=== PATIENT | female | born 1985 | race Caucasian/White ===

== ENCOUNTER 2019-04-11 12:05 | Observation (INO) | payer BC, OTHER ==
[~2019-04-11] VITALS: Ht 170 cm; Wt 84.4 kg
--- NOTE | 2019-04-11 12:00 | NUR ---
ARLEN BASHIR presented to unit via ambulation, accompanied by s/o, with c/o cramping since this a.m. Pt. weighed, gowned, voided, and to bed. EFHM and TOCO applied, VS taken. Pt. oriented to bed controls, call light, TV, heat, and A/C controls.
[~2019-04-11 12:05] MED LIST: ASP325T; BACL10TA PO; CEFU250T PO; CEPH-506 PO; KETO-22 PO; MULT1TAB12 PO; NF-ESOM40C PO; ONDAN4ODT PO
[2019-04-11 12:15] VITALS: BP 124/74
[2019-04-11] MEDS ORDERED: PREN-48 PO (12:29)
[2019-04-11 12:30] VITALS: BP 124/74
[2019-04-11 12:32] LABS: BILIRUBIN,URINE NEGATIVE (NEGATIVE); CLARITY,URINE CLEAR; COLOR,URINE YELLOW; GLUCOSE, URINE (UA) NEGATIVE (NEGATIVE); KETONES,URINE NEGATIVE (NEGATIVE); LEUKOCYTE ESTERASE ,URINE NEGATIVE (NEGATIVE); NITRITE,URINE NEGATIVE (NEGATIVE); PH,URINE 5.5 (5-9); PROTEIN,URINE NEGATIVE (NEGATIVE)
[2019-04-11 12:41] LABS: BACTERIA,URINE TRACE /HPF; WBC,URINE RARE /HPF
--- NOTE | 2019-04-11 13:05 | NUR ---
Dr Perkins called and notified of pt arrival - pt had called clinic so aware of pt complaints and history. updated on SVE, ctx pattern, pt c/o cramping, hx of nausea this am, FHR pattern, VS, UA. Orders rec'd for IV fluid, vistaril, betamethasone. Order also rec'd for terbutaline if needed one hour after vistaril.
[2019-04-11] MEDS ORDERED: LACTATED RINGERS 1,000 ML IV ONE (13:07)
[2019-04-11] MEDS ORDERED: TERBUTALINE INJ 1 MG/ML (BRETHINE) AMP SC NR ×2 (13:15→15:30)
[2019-04-11] MEDS ORDERED: hydrOXYzine (VISTARIL/ATARAX) 25 MG capsule/tablet PO NR (13:15)
[2019-04-11] MEDS ORDERED: BETAMETHASONE ACE/NA PHOS 6 MG/ML (CELESTONE SOLUSPAN) IM SCH (13:30)
--- NOTE | 2019-04-11 15:07 | NUR ---
Dr Perkins called for update. Update given. Orders rec'd for US for cervical length and CHARLENE, maintenance fluids at 125ml/hr.
[2019-04-11] MEDS ORDERED: D5 LR IV SOLUTION 1,000 ML IV SCH ×2 (15:15→18:04)
--- NOTE | 2019-04-11 15:23 | NUR ---
Dr. Perkins notified of repeat SVE. Order for admit to obs and another dose of terbutaline.
[2019-04-11 15:30] VITALS: BP 118/57
--- NOTE | 2019-04-11 16:11 | History & Physical-OB ---
OB - Chief Complaint & HPI Date/Time Date of Admission: Date of Admission: 04/11/2019 Date seen by a Provider: Apr 11, 2019 Time Seen by a Provider: 16:04 Chief Complaint/History OB-Reason for Admission/Chief: Labor Hx : 5 Hx Para: 2 Expected Date of Delivery: Jun 12, 2019 Gestational Age in Weeks: 31 Gestational Age in Days: 1 Other reason for admission: Patient started having cramping this AM around 9 AM. Denies any LOF or bleeding. Pain started getting stronger and more uncomfortable. Denies any coughing, no fevers or chills. History of Labs A neg, Ab neg Rub Imm Normal Pap GC/Chyl neg HepB/RPR/HIV NR Normal 1 hr GTT Allergies and Home Medications Allergies Coded Allergies: No Known Drug Allergies (Verified , 08/20/08) Home Medications Vit No.78/Iron/FA 1 Each Tablet, 1 EACH PO DAILY, (Reported) Patient Home Medication List Home Medication List Reviewed: Yes OB - History Hx of Present Care: Yes Ultrasounds: Normal mid trimester US Obstetrical Complications: None Medical Complications: None Obstetrical History Hx : 5 Hx Para: 2 Number of Living Children: 2 Hx Termination: No Hx Multiple Gestation: No Hx Stillbirth: No Hx Complication: No Hx Induced Hypertens: No Hx Maternal Gestational Diabet: No Delivery History Hx Dystocia: No Hx Large For Gestational Age I: No Hx Small for Gestational Age I: No Hx Section: No Hx Vaginal Delivery Post C-Sec: No Hx Blood Disorders: No Adverse Rxn to Tranfusion: No Patient Past Medical History NA Social History/Family History HIV/AIDS: No Recent Infectious Disease Expo: No Sexually Transmitted Disease: No Alcohol Use: Denies Use Recreational Drug Use: No Smoking Cessation: Former smoker 2nd Hand Smoke Exposure: Yes Immunizations Tetanus Booster (TDap): Less than 5yrs (04/02/19) Date of Influenza Vaccine: Jan 16, 2019 Rubella: immune RPR/VDRL: Negative GBS Status: Unknown HBsAG: Negative OB - Admission Exam Physical Exam Vitals: Vital Signs 04/11/19 12:30 Temp 36.4 Pulse 86 Resp 18 Pulse Ox 99 O2 Delivery Room Air HEENT: NCAT Heart: Rhythm Normal Lungs: Clear Abdomen: Gravid Extremities: Normal Reflexes: Normal Cervical Dilatation: 2cm Effacement: 75% Membranes: Intact Decelerations: Variable Decelerations Contractions on Admission: < 5 Minutes Apart Labs Laboratory Tests Test 04/11/19 12:05 Range/Units Urine Color YELLOW Urine Clarity CLEAR Urine pH 5.5 5-9 Urine Specific [place] <=1.005 1.016-1.022 Urine Protein NEGATIVE NEGATIVE Urine Glucose (UA) NEGATIVE NEGATIVE Urine Ketones NEGATIVE NEGATIVE Urine Nitrite NEGATIVE NEGATIVE Urine Bilirubin NEGATIVE NEGATIVE Urine Urobilinogen 0.2 < = 1.0 MG/DL Urine Leukocyte Esterase NEGATIVE NEGATIVE Urine RBC (Auto) NEGATIVE NEGATIVE Urine RBC NONE /HPF Urine WBC RARE /HPF Urine Squamous Epithelial Cells 2-5 /HPF Urine Crystals NONE /LPF Urine Bacteria TRACE /HPF Urine Casts NONE /LPF Urine Mucus NEGATIVE /LPF Urine Culture Indicated NO OB - Assessment/Plan/Diagnosis Assessment Assessment: labor Admission Dx Pre term Labor 31 week gestation Admission Status: Observation Reason for Inpatient Admission: Labor Plan Other Plan 33 yo @ 31.1 wga here for labor Plan - Terb x 2 given, will continue to monitor after 2nd dose of terb if she continues to have cervical change then will transfer to [facility] Dr Spangler who I have already discussed patient with. - Beta x1, will need second dose tomorrow - If she continues to change will start Magnesium - US ordered - GBS culture done Copy Copies To 1: JELANI YANES MD, HOLLY R MD Apr 11, 2019 16:11
--- NOTE | 2019-04-11 16:30 | NUR ---
Dr Perkins here, discussing plan of care with pt.
--- NOTE | 2019-04-11 16:46 | Diagnostic Imaging Report ---
EXAMINATION: Limited ultrasound. INDICATION: Check cervix and amniotic fluid index. COMPARISON: There are no prior studies available for comparison. FINDINGS: There is a single live fetus in cephalic presentation. heart motion was noted and a rate of 169 BPM was recorded. There are no obvious abnormalities identified although a complete survey was not performed. growth parameters were not obtained either. The placenta is anterior and there is no previa. The amniotic fluid index is 10.55 (normal 8 to 22 cm). The cervix was visualized and measures 5.1 cm in length (normal 3 cm or greater). IMPRESSION: 1. There is a single live fetus in cephalic presentation. 2. There are no obvious abnormalities identified. 3. The amniotic fluid index and the length of the cervix are within normal limits. Dictated by: Dictated on workstation # [id number]
--- NOTE | 2019-04-11 17:19 | NUR ---
Dr. Perkins here, making arrangements for transfer of care to [facility]
[2019-04-11] MEDS ORDERED: ceFAZolin 2 GM/50 ML NS 50 ML ONE (18:05)
[2019-04-11] MEDS ORDERED: ceFAZolin INJECTION 1,000 MG ONE (18:08)
[2019-04-11] MEDS ORDERED: WATER (STERILE) FOR INJECTION 10 ML ONE (18:10)
[2019-04-11] MEDS ORDERED: CALCIUM GLUC. 10% 4.65 MEQ/10 ML VIAL IV PRN (18:15)
[2019-04-11] MEDS ORDERED: ceFAZolin INJECTION 1,000 MG in WATER (STERILE) FOR INJECTION 10 ML IV NR (18:15)
[2019-04-11] MEDS ORDERED: MAGNESIUM 4 GM/100 ML IVPB 100 ML IV SCH (18:15)
[2019-04-11 18:20] VITALS: BP 111/60
[2019-04-11] MEDS ORDERED: MAGNESIUM SULFATE DRIP 500 ML IV SCH (18:34)
[2019-04-11 18:45] VITALS: BP 114/59
--- NOTE | 2019-04-11 18:55 | NUR ---
Report to EMS staff. Pt transferred to [facility], assisted by EMS. No s/s of distress noted. Pt taken off unit to ambulance accompanied by EMS.
--- NOTE | 2019-04-11 19:03 | NUR ---
[facility] [place]
== END 2019-04-11 19:00 | disposition designated cancer center or children's hospital (05) ==
LOC: WSo 12:05 → LDRP 12:07 → WS 12:34 → LDRP 12:34 → WSo 15:26
PROVIDERS: ADMIT Family Medicine; ATTEND Family Medicine
DX: O60.00 Preterm labor without delivery, unspecified trimester (principal); Z3A.31 31 weeks gestation of pregnancy; Z87.891 Personal history of nicotine dependence
CPT/HCPCS: 76815; 81000; 87077; 87081; 87088; 96361; 96372; 96374; 96375; 96376; 99211; G0378

== ENCOUNTER 2019-04-29 17:35 | Outpatient (CLI) | payer BC ==
[~2019-04-29] VITALS: Ht 170.2 cm; Wt 84.4 kg
--- NOTE | 2019-04-29 17:26 | NUR ---
ARLEN BASHIR presented to unit via ambulation from dr office, accompanied by self, with c/o CONTRACTIONS. ARLEN BASHIR weighed, gowned, voided, and to bed. EFHM and TOCO applied, VS taken. ARLEN BASHIR oriented to bed controls, call light, TV, heat, and A/C controls.
[~2019-04-29 17:35] MED LIST changes: +PREN-48 PO
[2019-04-29 18:21] VITALS: BP 124/69
--- NOTE | 2019-04-29 18:25 | NUR ---
mug of ice water given. reviewed need to drink over next 30-1 hr. verbalized understanding.
--- NOTE | 2019-04-29 19:00 | NUR ---
3 contractions noted. no contractions last 20 min. 400cc of water drank over last 30 min. encouraged patient to continue hydrating. s/o at bedside.
--- NOTE | 2019-04-29 19:32 | NUR ---
dr adams called with patient c/o contraction/fhr pattern. new orders received. report to food preparation worker RN.
[2019-04-29] MEDS ORDERED: NS IV 1000 ML 1,000 ML ONE (19:34)
[2019-04-29] MEDS ORDERED: TERBUTALINE INJ 1 MG/ML (BRETHINE) AMP ONE (19:51)
[2019-04-29] MEDS ORDERED: TERBUTALINE INJ 1 MG/ML (BRETHINE) AMP SC ONE (20:00)
[2019-04-29] MEDS ORDERED: NS IV 1000 ML 1,000 ML IV SCH (20:00)
[2019-04-29 21:06] VITALS: BP 100/55
--- NOTE | 2019-04-29 21:43 | NUR ---
Discharge instructions discussed with patient. No questions or concerns voiced. Signature sheet signed, placed on chart. Pt ambulating off unit to private vehicle at time. No distress noted.
--- NOTE | 2019-04-30 09:29 | Physician Query-Final Dx ---
Clinic Account Progress/Dx Physician Query: Please give diagnosis Please include # weeks gestation Date of Service Apr 29, 2019 at 17:35 FANY VILLEGAS Apr 30, 2019 09:28
[2019-04-30 17:12] LABS: BILIRUBIN,URINE NEGATIVE (NEGATIVE); CLARITY,URINE CLEAR; COLOR,URINE YELLOW; GLUCOSE, URINE (UA) NEGATIVE (NEGATIVE); KETONES,URINE NEGATIVE (NEGATIVE); LEUKOCYTE ESTERASE ,URINE NEGATIVE (NEGATIVE); NITRITE,URINE NEGATIVE (NEGATIVE); PH,URINE 6.5 (5-9); PROTEIN,URINE NEGATIVE (NEGATIVE)
[2019-04-30 17:21] LABS: BACTERIA,URINE MODERATE /HPF
== END 2019-04-29 21:43 | disposition home or self-care (01) ==
LOC: WSo 17:35 → LDRP 17:35 → WSo 21:43
PROVIDERS: ATTEND Family Medicine
DX: O26.899 Other specified pregnancy related conditions, unspecified trimester (principal); Z3A.00 Weeks of gestation of pregnancy not specified
CPT/HCPCS: 81000; 87088; 96360; 96372; 99213

== ENCOUNTER 2019-05-28 09:53 | Inpatient (IN) | payer BC ==
[2019-05-28] VITALS (41 sets, daily range): BP systolic 60–122; BP diastolic 44–73
[~2019-05-28] VITALS: Ht 170.2 cm; Wt 78.5 kg
--- NOTE | 2019-05-28 09:40 | NUR ---
ARLEN BASHIR presented to unit via ambulatory from office, accompanied by SO, for INDUCTION. ARLEN BASHIR weighed, gowned, voided, and to bed. EFHM and TOCO applied, VS taken. ARLEN BASHIR oriented to bed controls, call light, TV, heat, and A/C controls.
[~2019-05-28 09:53] MED LIST changes: +NFD60TCR PO
[2019-05-28] MEDS ORDERED: OXYTOCIN PRE-MIX DRIP 500 ML IV SCH ×2 (10:11→20:46)
[2019-05-28] MEDS ORDERED: MINERAL OIL CONCENTRATE 99.9% 15 ML UDC TOP PRN (10:15)
[2019-05-28 10:22] LABS: BASOPHILS % (AUTO) 0 % (0-10); EOSINOPHILS # (AUTO) 0.3 10^3/uL (0.0-0.3); EOSINOPHILS % (AUTO) 2 % (0-10); HEMATOCRIT 35 % (35-52); HEMOGLOBIN 11.9 G/DL (11.5-16.0); LYMPHOCYTES # (AUTO) 1.7 X 10^3 (1.0-4.0); LYMPHOCYTES % (AUTO) 12 % (12-44); MEAN CORPUSCULAR HEMOGLOBIN 31 PG (25-34); MEAN CORPUSCULAR HGB CONC 34 G/DL (32-36); MEAN CORPUSCULAR VOLUME 91 FL (80-99); MEAN PLATELET VOLUME 11.5 FL (7.4-10.4); MONOCYTES # (AUTO) 1.1 X 10^3 (0.0-1.0); MONOCYTES % (AUTO) 8 % (0-12); NEUTROPHILS # (AUTO) 11.2 X 10^3 (1.8-7.8); NEUTROPHILS % (AUTO) 78 % (42-75); PLATELET COUNT 203 10^3/uL (130-400); WHITE BLOOD COUNT 14.3 10^3/uL (4.3-11.0)
[2019-05-28] MEDS ORDERED: LACTATED RINGERS 1,000 ML IV ONE ×2 (10:22→12:10)
[2019-05-28] MEDS ORDERED: SUFENTA 0.6MCG/ML BUPIVA 0.125 100 ML ONE (10:22)
[2019-05-28] MEDS: D5 LR IV SOLUTION 1,000 ML IV SCH ×2 (10:22→18:02)
[2019-05-28] MEDS ORDERED: fentaNYL INJECTION 100 MCG/2 ML AMP ONE (11:39)
[2019-05-28 12:01] LABS: BAND NEUTROPHILS 7 %; BASOPHILS % (MANUAL) 0 %; EOSINOPHILS % (MANUAL) 5 %; LYMPHOCYTES % (MANUAL) 11 %; MONOCYTES % (MANUAL) 3 %; NEUTROPHILS % (MANUAL) 74 %; RBC MORPH NORMAL
[2019-05-28] MEDS ORDERED: ONDANSETRON 4 MG/2 ML (SDV) Z0FRAN IV PRN (12:15)
[2019-05-28] MEDS ORDERED: EPIDURAL (SUFENTA 0.6MCG/ML BUPIVA 0.125%) 100 ML BAG EPI PRN (12:15)
[2019-05-28] MEDS ORDERED: NALOXONE 0.4 MG/ML 1 ML (NARCAN) VIAL IV PRN ×2 (12:15)
[2019-05-28] MEDS ORDERED: METOCLOPRAMIDE INJ 10 MG/2 ML (REGLAN) IV PRN (12:15)
[2019-05-28] MEDS ORDERED: diphenhydrAMINE 50 MG/ML INJ (BENADRYL) IV PRN (12:15)
--- NOTE | 2019-05-28 12:30 | NUR ---
report given to Linda GALLO
--- NOTE | 2019-05-28 18:03 | History & Physical-OB ---
OB - Chief Complaint & HPI Date/Time Date of Admission: Date of Admission: May 28, 2019 at 09:53 Date seen by a Provider: May 28, 2019 Time Seen by a Provider: 17:59 Chief Complaint/History OB-Reason for Admission/Chief: Induction of Labor (Oligo) Hx : 1 Expected Date of Delivery: Jun 12, 2019 Gestational Age in Weeks: 37 Gestational Age in Days: 6 Indication for induction: other (Oligohydramnios) History of Labs A neg, Ab neg Rub Imm HIV/RPR/HepB NR Normal 1 hr GTT GBS neg Allergies and Home Medications Allergies Coded Allergies: No Known Drug Allergies (Verified , 08/20/08) Home Medications Nifedipine 60 Mg Tablet.er, 60 MG PO DAILY Prescribed by: JELANI YANES on 05/07/19 1027 Vit No.78/Iron/FA 1 Each Tablet, 1 EACH PO DAILY, (Reported) Patient Home Medication List Home Medication List Reviewed: Yes OB - History Hx of Present Care: Yes Ultrasounds: Normal mid trimester US, Other (Oligohydramnios today BPP) Obstetrical Complications: Other ( labor, Beta x 2 doses) Medical Complications: None Obstetrical History Hx : 5 Hx Para: 2 Hx # Term Pregnancies: 2 Number of Living Children: 2 Hx Termination: No Hx Total # of Abortions (Spona: 2 Hx Multiple Gestation: No Hx Stillbirth: No Hx Complication: No Hx Induced Hypertens: No Hx Maternal Gestational Diabet: No Delivery History Hx Dystocia: No Hx Large For Gestational Age I: No Hx Small for Gestational Age I: No Hx Section: No Hx Vaginal Delivery Post C-Sec: No Hx Blood Disorders: No Adverse Rxn to Tranfusion: No Patient Past Medical History Repaired clef palate Social History/Family History HIV/AIDS: No Recent Infectious Disease Expo: No Sexually Transmitted Disease: No Alcohol Use: Denies Use Recreational Drug Use: No 2nd Hand Smoke Exposure: No Immunizations Hepatitis A: No Hepatitis B: No Tetanus Booster (TDap): Less than 5yrs (04/02/19) Date of Influenza Vaccine: Dec 27, 2018 Rubella: immune RPR/VDRL: Negative GBS Status: Negative HBsAG: Negative OB - Admission Exam Physical Exam Vitals: Vital Signs 05/28/19 05/28/19 05/28/19 13:00 15:45 16:45 Temp 36.8 Pulse 78 Resp 16 B/P (MAP) 110/72 (85) Pulse Ox 96 O2 Delivery Room Air HEENT: NCAT Heart: Rhythm Normal Lungs: Clear Abdomen: Gravid Cervical Dilatation: 5cm Effacement: 75% Station: 0 Membranes: Ruptured Amniotic Fluid: Clear Heart Rate: 140's Accelerations: Accelerations Present Decelerations: No Decelerations Contractions on Admission: < 5 Minutes Apart Intensity: Moderate Quinteros Scoring Tool (Modified) Dilation (cm): 3-4cm (2) Effacement (%): 31-51% (1) Descent/Station: -1,0 (2) Cervix Consistency: Medium(1) Cervix Position: Middle/Mid-Position (1) Add 1 point for: Each previous vaginal delivery (1) Quinteros Score: 8 Labs Laboratory Tests Test 05/28/19 10:05 Range/Units White Blood Count 14.3 H 4.3-11.0 10^3/uL Red Blood Count 3.87 L 4.35-5.85 10^6/uL Hemoglobin 11.9 11.5-16.0 G/DL Hematocrit 35 35-52 % Mean Corpuscular Volume 91 80-99 FL Mean Corpuscular Hemoglobin 31 25-34 PG Mean Corpuscular Hemoglobin Concent 34 32-36 G/DL Red Cell Distribution Width 14.0 10.0-14.5 % Platelet Count 203 130-400 10^3/uL Mean Platelet Volume 11.5 H 7.4-10.4 FL Neutrophils (%) (Auto) 78 H 42-75 % Lymphocytes (%) (Auto) 12 12-44 % Monocytes (%) (Auto) 8 0-12 % Eosinophils (%) (Auto) 2 0-10 % Basophils (%) (Auto) 0 0-10 % Neutrophils # (Auto) 11.2 H 1.8-7.8 X 10^3 Lymphocytes # (Auto) 1.7 1.0-4.0 X 10^3 Monocytes # (Auto) 1.1 H 0.0-1.0 X 10^3 Eosinophils # (Auto) 0.3 0.0-0.3 10^3/uL Basophils # (Auto) 0.0 0.0-0.1 10^3/uL Neutrophils % (Manual) 74 % Lymphocytes % (Manual) 11 % Monocytes % (Manual) 3 % Eosinophils % (Manual) 5 % Basophils % (Manual) 0 % Band Neutrophils 7 % Blood Morphology Comment NORMAL OB - Assessment/Plan/Diagnosis Assessment Assessment: induction of labor Admission Dx Oligohydramnios 37 week gestation Third trimester Admission Status: Inpatient Order (span 2 midnights) Reason for Inpatient Admission: Labor Plan Plan: Induction Other Plan 33 yo @ 37.6 wga here for IOL for Oligohydramnios Plan Pitocin Protocol GBS neg AROM 1750 Clear JELANI YANES MD May 28, 2019 18:03
[2019-05-28] MEDS: CATHETER FLUSH 10 ML SYR IV SCH ×2 (19:03→22:15)
--- NOTE | 2019-05-28 19:20 | NUR ---
Report given to Margarita Limon RN.
--- NOTE | 2019-05-28 20:44 | OB Labor & Delivery Record ---
Vag Delivery Note Vag Delivery Note Date of Delivery: 05/28/19 Preoperative Diagnosis: Almita Burdick is a (33 /Para 5 / 2, Gestational Age (wks)37.6 wga here for IOL for Oligohydramnios Postoperative Diagnosis: Same Surgeon: JELANI YANES Manager Of Data: Joanna Urbina MS3 Anesthesia: Epidural Delivery Type: @ 2014 Findings: Viable Female infant, apgars 8/9, weight 6#3, 2820 grams Lacerations: none Intact placenta with 3 vessel cord. No nuchal cord, body cord or shoulder dystocia Estimated Blood Loss: 100 ml Complications: None Condition: Stable Description of Procedure: The patient is a 33 year old female who presented for IOL. She was admitted and informed consent was obtained. Her labor course was unremarkable. She progressed to complete dilatation and began to push. She was then set up for delivery. The infant's head was delivered atraumatically in the LAUREN position. The shoulders and remainder of the infant's body were then delivered without difficulty. Upon delivery, the head was held below the level of the perineum and the mouth and nares were bulb suctioned. The cord was doubly clamped after 2 min delay and cut by FOB and the was placed on maternal abdomen. An intact placenta with 3-vessel cord delivered via Evan and there was found to be minimal bleeding.~ Vigorous fundal massage was performed and the fundus was found to be firm. IV oxytocin was given. Examination of the vagina and perineum revealed no lacerations that require repair. Following the repair, sponge, instrument and needle counts were correct. Mom and baby were both in stable condition in the labor suite. Vitals - Labs Vital Signs - I&O Vital Signs Date Time Temp Pulse Resp B/P (MAP) Pulse Ox O2 Delivery O2 Flow Rate FiO2 05/28/19 19:00 72 16 103/67 (79) Room Air 05/28/19 18:45 70 16 103/69 (80) Room Air 05/28/19 18:30 75 16 101/68 (79) 99 Room Air 05/28/19 18:15 65 16 103/65 (78) 99 Room Air 05/28/19 18:00 71 16 103/65 (78) 99 Room Air 05/28/19 17:45 36.8 71 16 102/62 (75) Room Air 05/28/19 17:30 71 16 105/66 (79) Room Air 05/28/19 17:15 65 16 106/62 (77) Room Air 05/28/19 17:00 65 16 102/66 (78) Room Air 05/28/19 16:45 78 16 110/72 (85) Room Air 05/28/19 16:30 63 16 106/65 (79) Room Air 05/28/19 16:15 66 16 104/67 (79) Room Air 05/28/19 16:00 64 16 102/62 (75) Room Air 05/28/19 15:45 65 16 104/59 (74) 96 Room Air 05/28/19 15:30 60 16 104/61 (75) Room Air 05/28/19 15:15 72 16 108/64 (79) Room Air 05/28/19 15:00 66 16 108/53 (71) Room Air 05/28/19 14:45 67 16 103/60 (74) 97 Room Air 05/28/19 14:30 68 16 104/59 (74) 97 Room Air 05/28/19 14:15 69 16 104/64 (77) 98 Room Air 05/28/19 14:00 77 16 101/64 (76) 98 Room Air 05/28/19 13:45 71 16 98/63 (75) 97 Room Air 05/28/19 13:30 73 16 107/72 (84) 97 Room Air 05/28/19 13:15 96 16 105/72 (83) 98 Room Air 05/28/19 13:00 36.8 80 16 102/68 (79) 98 Room Air 05/28/19 12:45 88 16 107/68 (81) 98 Room Air 05/28/19 12:00 36.3 75 16 109/67 (81) 98 Room Air 05/28/19 09:50 93 16 114/73 (87) 97 Room Air 05/28/19 09:40 37.7 93 16 97 Room Air Labs Laboratory Tests 05/28/19 10:05: White Blood Count 14.3H, Red Blood Count 3.87L, Hemoglobin 11.9, Hematocrit 35, Mean Corpuscular Volume 91, Mean Corpuscular Hemoglobin 31, Mean Corpuscular Hemoglobin Concent 34, Red Cell Distribution Width 14.0, Platelet Count 203, Mean Platelet Volume 11.5H, Neutrophils (%) (Auto) 78H, Lymphocytes (%) (Auto) 1 2, Monocytes (%) (Auto) 8, Eosinophils (%) (Auto) 2, Basophils (%) (Auto) 0, Neutrophils # (Auto) 11.2H, Lymphocytes # (Auto) 1.7, Monocytes # (Auto) 1.1H, Eosinophils # (Auto) 0.3, Basophils # (Auto) 0.0, Neutrophils % (Manual) 74, Lymphocytes % (Manual) 11, Monocytes % (Manual) 3, Eosinophils % (Manual) 5, Basophils % (Manual) 0, Band Neutrophils 7, Blood Morphology Comment NORMAL JELANI YANES MD May 28, 2019 20:44
[2019-05-28] MEDS ORDERED: BENZOCAINE/MENTHOL (DERMOPLAST) 60 ML CAN TP PRN (21:00)
[2019-05-28] MEDS ORDERED: WITCH HAZEL(TUCKS) 40 EA JAR TOP PRN (21:00)
[2019-05-28] MEDS ORDERED: CATHETER FLUSH 10 ML SYR IV SCH (22:00)
--- NOTE | 2019-05-28 23:30 | NUR ---
PT AND BABY TRANSFERRED TO PP ROOM. PT REQUESTS SHOWER AT THIS TIME. NO S/S OF DISTRESS NOTED.
--- NOTE | 2019-05-28 23:45 | NUR ---
PT UP TO SHOWER AT THIS TIME- INDEPENDENTLY. TOLERATED WELL.
[2019-05-28] MEDS: DOCUSATE SODIUM 100 MG (COLACE) CAP PO SCH (23:52)
[2019-05-29 00:02] VITALS: BP 117/67
[2019-05-29] MEDS: IBUPROFEN 600 MG (MOTRIN) TAB PO SCH ×5 (00:02→21:58)
[2019-05-29] MEDS: ACETAMINOPHEN 500 MG TAB (TYLENOL) PO SCH ×5 (00:02→21:58)
--- NOTE | 2019-05-29 00:06 | NUR ---
PT SITTING UP IN BED BONDING WITH INFANT. NO S/S OF DISTRESS NOTED. NO C/O DISCOMFORT AT THIS TIME. PT STATES SHE FEELS MUCH BETTER AFTER HER SHOWER. THIS RN EXPLAINS MEDICATIONS AND ADMIN TIMES. PT STATES THAT SHE DOESN'T WANT TO TAKE THE MOTRIN OR TYLENOL SCHEDULED. PT STATES SHE WILL LET NURSING STAFF KNOW IF SHE NEEDS PAIN MEDICATIONS.
[2019-05-29 04:22] VITALS: BP 99/60
[2019-05-29 07:09] LABS: BASOPHILS % (AUTO) 0 % (0-10); EOSINOPHILS # (AUTO) 0.3 10^3/uL (0.0-0.3); EOSINOPHILS % (AUTO) 2 % (0-10); HEMATOCRIT 34 % (35-52); HEMOGLOBIN 11.1 G/DL (11.5-16.0); LYMPHOCYTES # (AUTO) 1.8 X 10^3 (1.0-4.0); LYMPHOCYTES % (AUTO) 12 % (12-44); MEAN CORPUSCULAR HEMOGLOBIN 31 PG (25-34); MEAN CORPUSCULAR HGB CONC 33 G/DL (32-36); MEAN CORPUSCULAR VOLUME 92 FL (80-99); MEAN PLATELET VOLUME 11.7 FL (7.4-10.4); MONOCYTES # (AUTO) 1.6 X 10^3 (0.0-1.0); MONOCYTES % (AUTO) 11 % (0-12); NEUTROPHILS % (AUTO) 75 % (42-75); PLATELET COUNT 168 10^3/uL (130-400); RED CELL DISTRIBUTION WIDTH 13.7 % (10.0-14.5); WHITE BLOOD COUNT 14.6 10^3/uL (4.3-11.0)
--- NOTE | 2019-05-29 07:58 | Anesthesia-Regional Post-Op ---
Regional Patient Condition Mental Status: Alert, Oriented x3 Circulation: Same as Pre-Op Headache: Absent Sensation: Full Recovery Motor Block: Absent Post Op Complications Complications None Follow Up Care/Instructions Patient Instructions None needed. Anesthesia/Patient Condition Patient is doing well, no complaints, stable vital signs, no apparent adverse anesthesia problems. No complications reported per nursing. MASON DUDLEY CRNA May 29, 2019 07:58
[2019-05-29 08:30] VITALS: BP 115/56
--- NOTE | 2019-05-29 08:30 | NUR ---
A.M. ASSESSMENT COMPLETED. VSS. CARING FOR IN ROOM.
--- NOTE | 2019-05-29 08:45 | NUR ---
MENU GIVEN WITH INSTRUCTIONS ON CALLING DIETARY.
[2019-05-29] MEDS: DOCUSATE SODIUM 100 MG (COLACE) CAP PO SCH ×2 (08:48→21:58)
--- NOTE | 2019-05-29 09:08 | Progress Note ---
Subjective Subjective/Events-last exam Doing well. Pain and lochia as expected. Bottle feeding. Objective Exam Last Set of Vital Signs Vital Signs Date Time Temp Pulse Resp B/P (MAP) Pulse Ox O2 Delivery O2 Flow Rate FiO2 05/29/19 04:22 36.2 64 16 99/60 (73) 98 Room Air Capillary Refill : Less Than 3 Seconds I&O Intake and Output 05/29/19 00:00 Intake Total 3377 ml Balance 3377 ml IV Total 3377 ml Daily Weight Change No General: Alert, Oriented X3, Cooperative Psych/Mental Status: Mood NL Results/Procedures Lab Laboratory Tests 05/28/19 10:05: White Blood Count 14.3H, Red Blood Count 3.87L, Hemoglobin 11.9, Hematocrit 35, Mean Corpuscular Volume 91, Mean Corpuscular Hemoglobin 31, Mean Corpuscular Hemoglobin Concent 34, Red Cell Distribution Width 14.0, Platelet Count 203, Mean Platelet Volume 11.5H, Neutrophils (%) (Auto) 78H, Lymphocytes (%) (Auto) 12, Monocytes (%) (Auto) 8, Eosinophils (%) (Auto) 2, Basophils (%) (Auto) 0, Neutrophils # (Auto) 11.2H, Lymphocytes # (Auto) 1.7, Monocytes # (Auto) 1.1H, Eosinophils # (Auto) 0.3, Basophils # (Auto) 0.0, Neutrophils % (Manual) 74, Lymphocytes % (Manual) 11, Monocytes % (Manual) 3, Eosinophils % (Manual) 5, Basophils % (Manual) 0, Band Neutrophils 7, Blood Morphology Comment NORMAL 05/29/19 06:40: White Blood Count 14.6H, Red Blood Count 3.64L, Hemoglobin 11.1L, Hematocrit 34L , Mean Corpuscular Volume 92, Mean Corpuscular Hemoglobin 31, Mean Corpuscular Hemoglobin Concent 33, Red Cell Distribution Width 13.7, Platelet Count 168, Mean Platelet Volume 11.7H, Neutrophils (%) (Auto) 75, Lymphocytes (%) (Auto) 12, Monocytes (%) (Auto) 11, Eosinophils (%) (Auto) 2, Basophils (%) (Auto) 0, Neutrophils # (Auto) 11.0H, Lymphocytes # (Auto) 1.8, Monocytes # (Auto) 1.6H, Eosinophils # (Auto) 0.3, Basophils # (Auto) 0.0 Assessment/Plan Assessment/Plan (1) Spontaneous vaginal delivery Assessment & Plan: IOL at 37w6 for oligohydramnios PPD #1 - routine pp care plan DC home tomorrow Clinical Quality Measures DVT/VTE Risk/Contraindication: Risk Factor Score Per Nursin RFS Level Per Nursing on Admit: 1=Low/No VTE PPX ESTHER JOSEPH DO May 29, 2019 09:08
--- NOTE | 2019-05-29 11:00 | NUR ---
CONTINUES TO CARE FOR IN ROOM. BOTTLE FEEDING . GOOD INTERACTION NOTED.
[2019-05-29 12:30] VITALS: BP 115/63
--- NOTE | 2019-05-29 14:30 | NUR ---
OFFERS NO COMPLAINTS AT THIS TIME. CONTINUES TO CARE FOR INFANT IN ROOM.
[2019-05-29 16:00] VITALS: BP 109/57
--- NOTE | 2019-05-29 17:15 | NUR ---
RHOGAM 1 VIAL IM IN LEFT VG SITE. SITE CLEAR. VISITORS AT BEDSIDE.
[2019-05-29 21:58] VITALS: BP 114/54
--- NOTE | 2019-05-30 00:45 | NUR ---
Pt. resting in bed with infant at bedside in crib. No questions or concerns voiced at this time.
[2019-05-30 04:05] VITALS: BP 118/79
[2019-05-30] MEDS: IBUPROFEN 600 MG (MOTRIN) TAB PO SCH ×2 (04:05→11:40)
[2019-05-30] MEDS: ACETAMINOPHEN 500 MG TAB (TYLENOL) PO SCH ×2 (04:06→11:40)
[2019-05-30] MEDS: DOCUSATE SODIUM 100 MG (COLACE) CAP PO SCH (08:31)
[2019-05-30 08:35] VITALS: BP 101/66
[2019-05-30] MEDS ORDERED: IBUP-844 PO (09:04)
--- NOTE | 2019-05-30 09:08 | Short Stay Summary ---
Discharge Summary Hospital Course Problems/Dx: (1) Spontaneous vaginal delivery Assessment & Plan: IOL at 37w6 for oligohydramnios; hx of labor - arrested with Nifedipine PPD #2 - routine pp care plan DC home; f/u with Dr. Perkins in 6wk Final Diagnosis: see Problem List Hospital Course Date of Admission: May 28, 2019 at 09:53 Family Physician/Provider: Jelani Perkins MD Date of Discharge: 05/30/19 Discharge Diagnosis: see problem list Labs and Pending Lab Test: Laboratory Tests 05/28/19 10:05: White Blood Count 14.3H, Red Blood Count 3.87L, Hemoglobin 11.9, Hematocrit 35, Mean Corpuscular Volume 91, Mean Corpuscular Hemoglobin 31, Mean Corpuscular Hemoglobin Concent 34, Red Cell Distribution Width 14.0, Platelet Count 203, Mean Platelet Volume 11.5H, Neutrophils (%) (Auto) 78H, Lymphocytes (%) (Auto) 12, Monocytes (%) (Auto) 8, Eosinophils (%) (Auto) 2, Basophils (%) (Auto) 0, Neutrophils # (Auto) 11.2H, Lymphocytes # (Auto) 1.7, Monocytes # (Auto) 1.1H, Eosinophils # (Auto) 0.3, Basophils # (Auto) 0.0, Neutrophils % (Manual) 74, Lymphocytes % (Manual) 11, Monocytes % (Manual) 3, Eosinophils % (Manual) 5, Basophils % (Manual) 0, Band Neutrophils 7, Blood Morphology Comment NORMAL 05/29/19 06:40: White Blood Count 14.6H, Red Blood Count 3.64L, Hemoglobin 11.1L, Hematocrit 34L, Mean Corpuscular Volume 92, Mean Corpuscular Hemoglobin 31, Mean Corpuscular Hemoglobin Concent 33, Red Cell Distribution Width 13.7, Platelet Count 168, Mean Platelet Volume 11.7H, Neutrophils (%) (Auto) 75, Lymphocytes (%) (Auto) 12, Monocytes (%) (Auto) 11, Eosinophils (%) (Auto) 2, Basophils (%) (Auto) 0, Neutrophils # (Auto) 11.0H, Lymphocytes # (Auto) 1.8, Monocytes # (Auto) 1.6H, Eosinophils # (Auto) 0.3, Basophils # (Auto) 0.0 Assessment/Pt Instructions follow-up with Dr. Perkins in 6wk Discharge Instructions Discharge Diet: No Restrictions Discharge Physical Examination General Appearance: Alert, Oriented X3, Cooperative Psych/Mental Status: Mood NL Allergies: Coded Allergies: No Known Drug Allergies (Verified , 08/20/08) Copy Copies To 1: JELANI PERKINS MD Discharge Summary Date of Admission May 28, 2019 at 09:53 Date of Discharge Discharge Date: May 30, 2019 Clinical Quality Measures DVT/VTE Risk/Contraindication: Risk Factor Score Per Nursin RFS Level Per Nursing on Admit: 1=Low/No VTE PPX ESTHER JOSEPH DO May 30, 2019 09:08
--- OUTSIDE RECORDS SUMMARY | 2019-05-30 10:43 | XMS REPORT ---
Author Author [employer] Organization [employer] Address [address] [address] Care Team Providers Care Oyster Shipper Name Role Phone JULIANA ANN Unavailable Unavailable XENIA KONG Unavailable Unavailable JOSEPH, ESTHER Unavailable Unavailable JOSEPH, ESTHER K Unavailable [facility] Unavailable Unavaila ble [facility] Unavailable Unavaila JELANI Brito Unavailable LORRAINE BAILEY Unavailable Migration, Doctor Unavailable Unavailable Migration, Doctor Unavailable Unavailable JELANI YANES MD Unavailable Unavailable TYREE Lee Unavailable ARMINDA PATELNYA Unavailable JULIANA Neri Unavailable Unavailable Migration, Doctor Unavailable Unavailable JELANI YANES MD Unavailable Unavailable JELANI YANES MD Unavailable Unavailable TIFFANY BOWSER DO Unavailable Unavailable TODD GORDON APRN Unavailable Unavailable JAKE HUTSON ESTHER K Unavailable Unavailable Unavailable Unavailable Allergies Normalized Allergy Reported Date of Reaction(s) Care Provider Facility Allergy Type classification allergen Allergy Onset DA (1 source.) Unclassified No Known Drug 08-20-2008 - no inform ation JELANI YANES , Not Tiana Allergies (92736) Medications Current Medications Medication Ingredient Drug Dose Dates Status Sig Sig Care Class(es) (Normalized) (Original) Provid er ibuprofen ibuprofen Nonsteroida 200 mg Active no Ibuprofen no 200 mg oral Translation l information 200 MG name tablet (1 s: [ Anti-inflam Orally Three (no source.) Ibuprofen matory Drug times a day phone) 200 MG] 1 tablet with food or milk as needed 8h Active sulfamethox Sulfamethox Dihydrofola 03-06-20 Active take 1 Bactr im DS no azole 800 azole / te 14 tablet by 800-160 mg 1 nam e mg / Trimethopri Reductase mouth twice tablet by (no trimethopri m Inhibitor daily Oral route 2 phone ) m 160 mg Translation Antibacteri times per oral tablet s: [ al, day for 7 (1 source.) Bactrim DS Sulfonamide day(s) 18 800-160 mg] Antimicrobi Feb, 2014 al Active Completed/Discontinued Medications Medication Ingredient Drug Dose Dates Status Sig Sig Care Class(es) (Normalized) (Original) Provid er varenicline varenicline Partial 0.5 mg 03-27-19 Suspende no Chantix no 0.5 mg oral Translation Cholinergic [address] arting name tablet (1 s: [ Nicotinic Month Cal (no source.) Chantix Agonist 0.5 MG X 11 phone) Starting & 1 MG X 42 Month Cal Orally as 0.5 MG X 11 directed 0.5 & 1 MG X mg on days 42] 1-3, 0.5 mg twice daily days 4-8, then 1 mg twice daily. Mar, Not-Taking Problems Active Problems Problem Normalized Date of Normalized Normalized Provider Fac ility Classification Problem(s) Problem Problem Problem Sta tus Onset/Resoluti Duration on Residual 31 weeks 05-09-2019 - Episodic Active WHIT SCOTT Via codes; gestation of MD [facility] unclassified Hospital - (8 sources.) [place] (15368) Substance-rela Nicotine Chronic Active WHIT ROSS Via marie disorders dependence, BERRY [facility] (2 sources.) cigarettes, Hospital - uncomplicated [place] (85480) Other Other 04-30-2019 - Episodic Active ESTHER JOSEPH V [facility] Via complications specified DO Barri[place] of Hospital - (2 sources.) related [place] conditions, (96616) unspecified trimester Screening and Personal 05-09-2019 - Episodic Active WHIT KNIGHT Via history of history of MD [facility] nicotine Hospital - and substance dependence [place] abuse codes (8 (77862) sources.) Early or labor 05-09-2019 - Episodic Active WHIT KNIGHT Via threatened without MD [facility] labor (8 delivery, Hospital - sources.) unspecified [place] trimester (46774) Other Unspecified Episodic Active TIFFANY SHERMAN V ia complications infection of , DO [facility] of urinary tract Hospital - (2 sources.) in , [place] first (01085) trimester Residual Weeks of 04-30-2019 - Episodic Active ESTHER JOSEPH V [facility] Via codes; gestation of DO Sherine unclassified not Hospital - (2 sources.) specified [place] (82667) Past or Other Problems Problem Normalized Date of Normalized Normalized Provider Fac ility Classification Problem(s) Problem Problem Problem Sta tus Onset/Resoluti Duration on Residual Less than 8 no information no information TYREE WALKER Community codes; [facility] unclassified gestation of of [facility] (2 sources.) [place] ([address]) Translations: [ - 6 weeks gestation of Z3A.01] Procedures Procedure Normalized Procedure Procedure Result Performer Facility Date 12-08-2017 Ia[place]oo influenza no information no name (no phon e) [facility] (83902) 12-08-2017 Iaadiadoo no information no name (no phone) [facility] streptococcus group a [facility] (31579) Immunizations Normalized Immunization Date Notes Care Provider Facili ty Immunization influenza, 01-02-2019 no information no name [facility] ealt injectable, [facility] quadrivalent, - [facility] preservative free (19429) tetanus toxoid, 04-02-2019 no information no name [facility] reduced diphtheria [facility] toxoid, and - [facility] acellular pertussis (18429) vaccine, adsorbed Results Test Name Value Interpretation Reference Range Date Time Fa cility (Normalized) (Normalized) (Medline Reference) strep a (in house) on null STREP A (IN 417l11 (no code) [facility]) [facility] (79324) STREP A (IN 2019 05 31 (no code) [facility]) [facility] (09344) influenza a & b (in house) on null INFLUENZA A & B no information (no code) [facility] (IN HOUSE) [facility] (72781) INFLUENZA A & B no information (no code) [facility] (IN HOUSE) [facility] (69072) INFLUENZA A & B [id number] (no code) [facility] (IN HOUSE) [facility] (72145) INFLUENZA A & B 2020 (no code) [facility] (IN HOUSE) [facility] (28931) No panel information on null Protein (U) no information (no code) 0 - 20 mg/dL [facility] [Mass/Vol] [facility] (93555) No panel information on 2019-05-14 Protein (U) negaitve~negaitv (no code) [facility] [Mass/Vol] e [facility] (64606) No panel information on 2019-05-06 Bacteria SEE NOTE (A) [facility] Cx [facility] Nom (U) [facility] (08096) No panel information on 2019-04-30 BLO no information (no code) [facility] (78034) KET 04/19/20~clear~y (no code) [facility] ellow~none~Negat [facility] reggie~Negative~Neg [facility] ative (07855) Lot # [id number] (no code) [facility] (60815) pH (Bld) 7.0 [pH] (no code) 7.38 - 7.42 [pH] [facility] (79142) Protein (U) no information (no code) 0 - 20 mg/dL [facility] [Mass/Vol] [facility] (56043) SG 1.015 (no code) [facility] (16376) URO 0.2 (no code) [facility] (69046) No panel information on 2019-04-16 Protein (U) no information (no code) 0 - 20 mg/dL [facility] [Mass/Vol] [facility] (90561) No panel information on 2019-03-19 Band form 1.084 10*3/uL (H) 0 - 0.75 10*3/uL Commun [facility] neutrophils [facility] (Bld) [#/Vol] [facility] (92594) Band form 8.6 % (N) 0 - 3 % [facility] neutrophils/[address] [facility] WBC (Bld) [facility] (38360) Basophils (Bld) 0 10*3/uL (N) 0 - 0.3 10*3/uL Commu nit Health [#/Vol] [facility] (14575) Basophils/100 0 % (N) 0.5 - 1 % [facility] WBC (Bld) [facility] (37651) Eosinophils 0.731 10*3/uL (H) 0.05 - 0.5 [facility] (Bld) [#/Vol] 10*3/uL [facility] (20971) Eosinophils/100 5.8 % (N) 1 - 4 % [facility] WBC (Bld) [facility] (88836) Erythrocyte 12.1 % (N) 11.6 - 14.6 % Community ealth distribution [facility] (RBC) [facility] [Ratio] (19340) Glucose 1 Hr 78 (N) [facility] post meal [facility] [Mass/Vol] [facility] (67513) Hematocrit (Bld) 34.2 % (L) 36.1 - 50.3 % [facility] [Volume [facility]] [facility] (02649) Hemoglobin (Bld) 11.8 g/dL (N) 12.1 - 17.2 g/dL [facility] [Mass/Vol] [facility] (72432) Lymphocytes 1.336 10*3/uL (N) 0.9 - 2.9 [facility] (Bld) [#/Vol] 10*3/uL [facility] (80395) Lymphocytes/100 10.6 % (N) 20 - 40 % [facility] WBC (Bld) [facility] (36393) MCH (RBC) 32.2 pg (N) 27 - 31 pg [facility] [Entitic mass] [facility] (87768) MCHC (RBC) 34.5 g/dL (N) 32 - 36 g/dL [facility] [Mass/Vol] [facility] (03088) MCV (RBC) 93.2 fL (N) 80 - 100 fL [facility] [Entitic vol] [facility] (38144) Metamyelocytes 0.239 10*3/uL (H) [facility] (Bld) [#/Vol] [facility] (58080) Metamyelocytes/1 1.9 % (H) 0 - 0 % [facility] 00 WBC (Bld) [facility] (31804) Monocytes (Bld) 0.731 10*3/uL (N) 0.3 - 0.9 [facility] Health [#/Vol] 10*3/uL [facility] (16115) Monocytes/100 5.8 % (N) 2 - 8 % [facility] WBC (Bld) [facility] (45539) Neutrophils 8.48 10*3/uL (H) 1.7 - 7 10*3/uL [facility] (Bld) [#/Vol] [facility] (31753) Neutrophils/100 67.3 % (N) 40 - 60 % [facility] WBC (Bld) [facility] (86359) NOTE no information (no code) [facility] (64933) Platelet mean 12.3 fL (N) 7.2 - 11.7 fL [facility] volume (Bld) [facility] [Entitic vol] [facility] (72873) Platelets (Bld) 182 10*3/uL (N) 150 - 450 [facility] [#/Vol] 10*3/uL [facility] (21726) Protein (U) no information (no code) 0 - 20 mg/dL [facility] [Mass/Vol] [facility] (53156) RBC (Bld) 3.67 10*6/uL (L) 4.2 - 6.1 [facility] [#/Vol] 10*6/uL [facility] (33561) Reagin Ab RPR Ql NON-REACTIVE (N) [facility] (S) [facility] (65301) WBC (Bld) 12.6 10*3/uL (H) 3.5 - 10.5 [facility] [#/Vol] 10*3/uL [facility] (88468) No panel information on 2019-01-21 Protein (U) no information (no code) 0 - 20 mg/dL [facility] [Mass/Vol] [facility] (58680) No panel information on 2018-12-25 Protein (U) no information (no code) 0 - 20 mg/dL [facility] [Mass/Vol] [facility] (37055) No panel information on 2018-10-18 ABO group Nom A (no code) [facility] (Bld) [facility] (83952) Bacteria SEE NOTE (no code) [facility] identified Aer [facility] cx Nom (Genital [facility] specimen) (66315) Bacteria SEE NOTE (no code) [facility] identified Cx Center [facility] Nom (U) [facility] (41370) Basophils (Bld) 0.073 10*3/uL (N) 0 - 0.3 10*3/uL [facility] [#/Vol] [facility] (77169) Basophils/100 0.8 % (N) 0.5 - 1 % [facility] alth WBC (Bld) [facility] (79550) BLO trace-intact (no code) [facility] (60331) Blood group NO ANTIBODIES (N) [facility] antibody screen DETECTED [facility] (94419) Clinical (N) [facility] information [facility] (32325) COMMENT no information (no code) [facility] (49352) Control neg~+ (no code) [facility] (59730) [employer] Cyto no information (N) [facility] stain [facility] (Cvx/Vag) [ID] [facility] (34611) Date of previous NONE GIVEN (N) [facility] biopsy [facility] (94771) Date of previous NONE GIVEN (N) [facility] PAP smear [facility] (58690) Eosinophils 0.382 10*3/uL (N) 0.05 - 0.5 [facility] alth (Bld) [#/Vol] 10*3/uL [facility] (09681) Eosinophils/100 4.2 % (N) 1 - 4 % [facility] WBC (Bld) [facility] (40812) Erythrocyte 12.1 % (N) 11.6 - 14.6 % Community H ealth distribution [facility] (RBC) [facility] [Ratio] (26085) Exp date 08/2019 (no code) [facility] (35745) Exp date +~02/2020 (no code) [facility] (88499) Exp date 05/2019 (no code) [facility] (33359) Hematocrit (Bld) 40.1 % (N) 36.1 - 50.3 % [facility] [[facility]] [facility] (66250) Hemoglobin (Bld) 13.6 g/dL (N) 12.1 - 17.2 g/dL [facility] [Mass/Vol] [facility] (54142) HPV E6+E7 mRNA Not Detected (N) [facility] MIYA+probe Ql [facility] (Cvx) [facility] (02137) KET 11/2018~clear~ye (no code) [facility] llow~none~negati [facility] ve~negative~nega [facility] tive (18592) Last menstrual 09/05/2018 (N) [facility] period start [facility] (19445) NICOLAS no information (no code) [facility] (25087) Lot # [id number] (no code) [facility] (02098) Lot # [id number] (no code) [facility] (97134) Lot # [id number] (no code) [facility] (45531) Lot # [id number] (no code) [facility] (94507) Lot # [id number] (no code) [facility] (60846) Lymphocytes 1.829 10*3/uL (N) 0.9 - 2.9 [facility] (Bld) [#/Vol] 10*3/uL [facility] (83207) Lymphocytes/100 20.1 % (N) 20 - 40 % [facility] WBC (Bld) [facility] (63544) MCH (RBC) 31.1 pg (N) 27 - 31 pg [facility] [Entitic mass] [facility] (67628) MCHC (RBC) 33.9 g/dL (N) 32 - 36 g/dL [facility] [Mass/Vol] [facility] (25124) MCV (RBC) 91.8 fL (N) 80 - 100 fL [facility] [Entitic vol] [facility] (96665) Microorganism no information (N) [facility] identified Cyto [facility] stain Nom [facility] (Cvx/Vag) (34817) Microscopic no information (N) [facility] observation Cyto [facility] stain Nom (Cvx) [facility] (49133) Monocytes (Bld) 0.783 10*3/uL (N) 0.3 - 0.9 [facility] Health [#/Vol] 10*3/uL [facility] (72288) Monocytes/100 8.6 % (N) 2 - 8 % [facility] alth WBC (Bld) [facility] (78395) Neutrophils 6.033 10*3/uL (N) 1.7 - 7 10*3/uL [facility] (Bld) [#/Vol] [facility] (56264) Neutrophils/100 66.3 % (N) 40 - 60 % [facility] WBC (Bld) [facility] (09546) pH (Bld) 6.0 [pH] (no code) 7.38 - 7.42 [pH] [facility] (54235) Platelet mean 11.7 fL (N) 7.2 - 11.7 fL [facility] volume (Bld) [facility] [Entitic vol] [facility] (20770) Platelets (Bld) 246 10*3/uL (N) 150 - 450 [facility] [#/Vol] 10*3/uL [facility] (94292) Protein (U) no information (no code) 0 - 20 mg/dL [facility] [Mass/Vol] [facility] (92722) RBC (Bld) 4.37 10*6/uL (N) 4.2 - 6.1 [facility] [#/Vol] 10*6/uL [facility] (11563) RESULTS no information (no code) [facility] (39831) Rh Nom (Bld) no information (no code) [facility] (62243) Rubella virus 1.18 (N) [facility] IgG Qn (S) [facility] (60397) SG 1.030 (no code) [facility] (94202) Specimen source Cervix (N) [facility] Cyto stain Nom [facility] (Cvx/Vag) [facility] (36458) Statement of no information (N) [facility] adequacy Cyto [facility] stain (Cvx/Vag) [facility] [Interp] (42053) TCA 02/2020~+~neg~ne (no code) [facility] g~neg~neg~neg~ne [facility] g~neg~neg~neg~ne [facility] g~neg~neg~neg (35115) TSH Qn 1.11 m[IU]/L (N) 0.4 - 4 m[IU]/L [facility] (50614) URO .2 (no code) [facility] (67278) WBC (Bld) 9.1 10*3/uL (N) 3.5 - 10.5 [facility] [#/Vol] 10*3/uL [facility] (11803) No panel information on 2017-12-08 Exp date no information (no code) [facility] (48999) Exp date 2020 (no code) [facility] (44123) Lot # [id number] (no code) [facility] (77059) Vital Signs Vital Sign Value Interpretation Reference Date Time Care Prov ider Facility (Normalized) (Normalized) Range BMI (Body Mass 21.17 kg/m2 (no code) 15 - 25 kg/m2 09-21-2018 PA YVONNE Community Index) 13:[address] (84467) Body 97.9 [degF] (no code) 97.8 - 99.0 12-08-2017 LORRAINE [facility] Temperature [degF] 13:20-[address] [facility] (80337) Body 98.5 [degF] (no code) 97.8 - 99.0 03-06-2014 [facility] Martita BALA [facility] Temperature [degF] 13:32-[address] [place] [address] (32063) Body weight 58.33 kg (no code) kg 03-06-2014 TYREE zAlexus [facility] 13:32-[address] [place] [address] (98990) Height 170.18 cm (no code) cm 12-08-2017 LORRAINE Commu nity 13:200400 [address] ([address]262) Height 170.18 cm (no code) cm 03-06-2014 [facility] 13:32-[address] [place] [address] (82892) Weight 61.33 kg (no code) kg 12-08-2017 LORRAINE Commun ity 13:200400 [address] ([address]118) Interventions No Information Plan of Treatment The data below is from unstructured sources Discharge Date 02/11/15 1:25pm Disposition 01 HOME, SELF-CARE Condition at Discharge Improved Instructions/Education Provided Spon taneous Miscarriage (DC) Prescriptions See Medication Section Referrals ESTHER JOSEPH DO - Primary Care Physician Additional Instructions/Education 1. Follow-up with your regular doctor next week 2. Return to ER for any worsening pain, lightheadedness or any other concerns. You can expect bleeding for the next 2-3 days. All discharge instructions reviewed with patient and/or family. Voiced understanding. Discharge Date 02/10/15 4:18am Disposition 01 HOME, SELF-CARE Condition at Discharge Stable Instructions/Education Provided Thre atened Miscarriage (ED) Urinary Tract Infection in Women (ED) Prescriptions See Medication Section Referrals ESTHER JOSEPH DO - Primary Care Physician Additional Instructions/Education KE EP YOUR APPOINTMENT ON MONDAY, 02/11. HAVE THEM RECHECK YOUR BLOOD NUMBER TEST @ THAT TIME TO RULE IN OR OUT MISCARRIAGE. Activity Details Follow Up 1 Week for repeat HCG lab Reason: Activity Details Follow Up prn Reason: Goals No Information Social History No Information Functional Status The data below is from unstructured sourcesNo functional status results.No functional status results.No functional status results. Mental Status No Information Encounters Encounter Normalized Encounter Encounter Diagnosis Care Provi eblla Organization Date Type 02-11-2015 Emergency department no information no name (no froylan ne) no organization name - patient visit (no phone) 02-11-2015 02-09-2015 Emergency department no information no name (no froylan ne) no organization name - patient visit (no phone) 02-09-2015 05-06-2019 Evaluation and no information JELANI YANES MD (no [facility] - management of phone) [facility] 05-07-2019 inpatient (no phone) 04-11-2019 Evaluation and no information JELANI YANES MD (no [facility] - management of phone) [facility] 04-11-2019 inpatient (no phone) 12-08-2017 Patient encounter no information no name (no phone) no organization name (no phone) 05-16-2019 Patient encounter no information (no phone) [facility] (no phone) 05-14-2019 Patient encounter no information (no phone) [facility] procedure [facility] (no phone) 05-06-2019 Patient encounter no information JELANI YANES MD ( no [facility] procedure phone) [facility] (no phone) 05-06-2019 Patient encounter no information (no phone) [facility] Health procedure Center [facility] (no phone) 04-30-2019 Patient encounter no information (no phone) [facility] (no phone) 04-29-2019 Patient encounter no information ESTHER JOSEPH DO (n o [facility] - procedure phone) (no phone) [facility] 04-29-2019 (no phone) 04-17-2019 Patient encounter no information no name (no phone) no organization name procedure (no phone) 04-16-2019 Patient encounter no information no name (no phone) no organization name procedure (no phone) 04-11-2019 Patient encounter no information no name (no phone) no organization name - procedure (no phone) 04-11-2019 03-19-2019 Patient encounter no information no name (no phone) no organization name procedure (no phone) 01-29-2019 Patient encounter no information no name (no phone) no organization name procedure (no phone) 01-21-2019 Patient encounter no information no name (no phone) no organization name procedure (no phone) 12-25-2018 Patient encounter no information no name (no phone) no organization name procedure (no phone) 11-22-2018 Patient encounter no information no name (no phone) no organization name procedure (no phone) 10-31-2018 Patient encounter no information no name (no phone) no organization name procedure (no phone) 10-18-2018 Patient encounter no information no name (no phone) no organization name procedure (no phone) 10-18-2018 Patient encounter no information no name (no phone) no organization name procedure (no phone) 03-19-2016 Patient encounter no information no name (no phone) no organization name procedure (no phone) 03-19-2016 Patient encounter no information no name (no phone) no organization name procedure (no phone) Medical Equipment No Information Payers No Information History general Narrative - Reported Note Type Note Facility History general Narrative - Reported Type Surgical cleft lip repair History Surgical cleft palate repair History Hospitaliz past surgery/childbirth ation History [facility] (62083) Summary Purpose eClinicalWorks SubmissioneClinicalWorks SubmissioneClinicalWorks SubmissioneClinicalWorks SubmissioneClinicalWorks SubmissioneClinicalWorks SubmissioneClinicalWorks SubmissioneClinicalWorks Submission Advance Directives Directive Response Recor ded Date/Time Advance Directives No 11:07am Resuscitation Status Full Code 02/11/15 11:07am Directive Response Recor ded Date/Time Advance Directives No 2:46am Resuscitation Status Full Code 02/10/15 2:46am Discharge Instructions No hospital discharge instructions.No hospital discharge instructions. Additional Source Comments This clinical document has been generated using [employer]JP software that has been certified by the Office of the National Coordinator for Health Information Technology (ONC 15.99.04.3023.Diam.31.00.0.501050) and the National Committee for Seismograph Operator (NCQA, as an eMeasure certified technology). FOR RECORDS PERTAINING TO PATIENTS WHO ARE OR HAVE BEEN ENROLLED IN A CHEMICAL D EPENDENCY/SUBSTANCE ABUSE PROGRAM, SOME INFORMATION MAY BE OMITTED. This clinica l summary was aggregated from multiple sources. Caution should be exercised in using it in the provision of clinical care. This summary normalizes information from multiple sources, and as a consequence, information in this document may ma terially change the coding, format and clinical context of patient data. In meme tion, data may be omitted in some cases. CLINICAL DECISIONS SHOULD BE BASED ON T HE PRIMARY CLINICAL RECORDS. [facility] 1-4 All. provides no warranty or guara ntee of the accuracy or completeness of information in this document.The followi information is based on time limited clinical information UNRECOGNIZED CONTENT PROVIDED BELOW FOR UNRECOGNIZED SECTION REASON FOR VISIT sore throat, fever, slight cough. been sick for 2 days. edilberto pt would lik e to be tested for [id number] UNRECOGNIZED CONTENT PROVIDED BELOW FOR UNRECOGNIZED SECTION MEDICAL (GENERAL) HISTORY Type Description Date Surgical History cleft lip repair Surgical History cleft palate repair Hospitalization History past surgery /childbirth
--- NOTE | 2019-05-30 10:55 | NUR ---
report received from CLEO Pickard. care assumed.
--- NOTE | 2019-05-30 11:40 | NUR ---
dismissal instructions given, verbalizes understanding. reviewed follow up appointments and Rx's. signature page signed, placed on chart.
--- NOTE | 2019-05-30 12:05 | NUR ---
pt ambulated to private vehicle with this RN, and s/o @ side. secured in rear facing car seat. pt stable with no sx's of distress noted.
== END 2019-05-30 12:05 | disposition home or self-care (01) | DRG 807 ==
LOC: LDRP 09:53
PROVIDERS: ADMIT Family Medicine; ATTEND Family Medicine
PROC: 10E0XZZ Delivery of Products of Conception, External Approach (ICD-10-PCS; principal; 2019-05-28)
PROC: 3E033VJ Introduction of Other Hormone into Peripheral Vein, Percutaneous Approach (ICD-10-PCS; 2019-05-28)
PROC: 10907ZC Drainage of Amniotic Fluid, Therapeutic from Products of Conception, Via Natural or Artificial Opening (ICD-10-PCS; 2019-05-28)
DX: O41.03X0 Oligohydramnios, third trimester, not applicable or unspecified (principal); Z37.0 Single live birth; Z3A.37 37 weeks gestation of pregnancy
CPT/HCPCS: 36415; 83033; 85007; 85025; 85027; 86850; 86900; 86901

== ENCOUNTER → 2019-07-31 | Outpatient (CLI) | payer BC ==
[~2019-07-31] MED LIST changes: +CATHETER FLUSH 10 ML SYR IV PRN; +HOLD METFORMIN - RECEIVED CONTRAST 20 ML VIAL IV SCH; +IBUP-844 PO; +IOHEXOL 350 MG/ML 100 ML (OMNIPAQUE 350) VIAL IV ONE; +NS 100 ML (IVPB) BAG IV ONE
[2019-07-31 14:52] LABS: BASOPHILS % (AUTO) 0 % (0-10); EOSINOPHILS # (AUTO) 0.4 10^3/uL (0.0-0.3); EOSINOPHILS % (AUTO) 4 % (0-10); HEMATOCRIT 42 % (35-52); HEMOGLOBIN 14.3 G/DL (11.5-16.0); LYMPHOCYTES # (AUTO) 2.3 X 10^3 (1.0-4.0); LYMPHOCYTES % (AUTO) 23 % (12-44); MEAN CORPUSCULAR HEMOGLOBIN 30 PG (25-34); MEAN CORPUSCULAR HGB CONC 34 G/DL (32-36); MEAN CORPUSCULAR VOLUME 89 FL (80-99); MEAN PLATELET VOLUME 11.9 FL (7.4-10.4); MONOCYTES # (AUTO) 0.8 X 10^3 (0.0-1.0); MONOCYTES % (AUTO) 9 % (0-12); NEUTROPHILS # (AUTO) 6.4 X 10^3 (1.8-7.8); NEUTROPHILS % (AUTO) 64 % (42-75); PLATELET COUNT 247 10^3/uL (130-400); RED CELL DISTRIBUTION WIDTH 12.8 % (10.0-14.5); WHITE BLOOD COUNT 9.9 10^3/uL (4.3-11.0)
[2019-07-31 15:16] LABS: ALANINE AMINOTRANSFERASE 41 U/L (0-55); ALBUMIN 4.5 GM/DL (3.2-4.5); ALKALINE PHOSPHATASE 61 U/L (40-136); BILIRUBIN,TOTAL 0.8 MG/DL (0.1-1.0); BUN/CREATININE RATIO 10; CALCIUM 9.3 MG/DL (8.5-10.1); CARBON DIOXIDE 23 MMOL/L (21-32); CHLORIDE 107 MMOL/L (98-107); CREATININE SERUM 0.82 MG/DL (0.60-1.30); GFR ESTIMATED > 60; GLUCOSE 98 MG/DL (70-105); POTASSIUM 3.7 MMOL/L (3.6-5.0); SODIUM 139 MMOL/L (135-145); TOTAL PROTEIN 7.3 GM/DL (6.4-8.2)
--- NOTE | 2019-07-31 15:32 | Diagnostic Imaging Report ---
PROCEDURE: CT abdomen and pelvis with contrast, rule out appendicitis. TECHNIQUE: Multiple contiguous axial images were obtained through the abdomen and pelvis after the administration of intravenous contrast. All CT scans use one or more of the following dose optimizing techniques: automated exposure control, MA and/or KvP adjustment based on a patient size and exam type, or iterative reconstruction. INDICATION: Diarrhea, right lower quadrant pain. COMPARISON: Exam compared to 02/04/2011. FINDINGS: The appendix can be best visualized in the coronal reconstructions and followed on images 36 through 42. It is normal in caliber. No evidence for periappendiceal edema. Some prominence of the cervical tissue is unchanged from the study of 2010. There may be fibroids at the lower uterine segment. Again, this is unchanged. There are few ovarian follicles bilaterally which did not appear pathologic. There is no evidence for abdominopelvic small or large bowel obstruction. No perienteric or pericolonic edema. Much of the colon is nondistended, limiting evaluation of its lyle. No gross pathological wall thickening. Cyst in the right hepatic lobe, chronic and benign. Gallbladder, bile ducts, spleen, adrenals, and pancreas are stable. There is no abdominopelvic mesenteric or retroperitoneal lymphadenopathy. There is no hydroureteronephrosis. No radiodense urinary tract stone. No pneumatosis or free gas. IMPRESSION: Unobstructed nonfocal urinary tracts. Unremarkable appendix. Stable appearance of the pelvis with no acute adnexal abnormality. No findings to explain the presenting complaint. Dictated by: Dictated on workstation # [id number]
== END ==
LOC: RAD 14:36
PROVIDERS: ATTEND Nurse Practitioner Family
DX: N93.9 Abnormal uterine and vaginal bleeding, unspecified (principal)
CPT/HCPCS: 36415; 74177; 80053; 85025

== ENCOUNTER 2020-01-28 10:00 | Emergency (ER) | payer BC ==
[~2020-01-28] VITALS: Ht 170 cm; Wt 65.0 kg
[~2020-01-28 10:00] MED LIST changes: -CATHETER FLUSH 10 ML SYR IV PRN; -HOLD METFORMIN - RECEIVED CONTRAST 20 ML VIAL IV SCH; -IOHEXOL 350 MG/ML 100 ML (OMNIPAQUE 350) VIAL IV ONE; -NS 100 ML (IVPB) BAG IV ONE
--- NOTE | 2020-01-28 10:14 | NUR ---
PILLOWS AND ICE GIVEN TO PT FOR COMFORT.
--- NOTE | 2020-01-28 10:45 | Diagnostic Imaging Report ---
HISTORY: Injury with severe pain in the left foot and ankle. TECHNIQUE: Three views of the left ankle. COMPARISON: None. FINDINGS: There is cortical irregularity at the inferior tip of the lateral malleolus. This is thought most likely to be chronic. No joint effusion is seen. Alignment appears normal. Ankle mortise is symmetric and the talar dome is intact. There is a small Achilles tendon enthesophyte. IMPRESSION: 1. Small cortical irregularity at the distal tip of the lateral malleolus is thought to be from a remote trauma. No definitely acute fracture seen in the left ankle. Dictated by: Dictated on workstation # [id number]
--- NOTE | 2020-01-28 10:46 | Diagnostic Imaging Report ---
HISTORY: Injury to the left foot with pain. TECHNIQUE: Three views of the left foot. COMPARISON: None FINDINGS: No acute fracture or dislocation is seen in the left foot. Alignment appears normal. Joint spaces are preserved. No cortical erosions are seen. IMPRESSION: 1. No acute osseous abnormality is seen in the left foot. Dictated by: Dictated on workstation # [id number]
--- NOTE | 2020-01-28 10:57 | ED Lower Extremity ---
General Chief Complaint: Lower Extremity Stated Complaint: L FOOT PAIN Nursing Triage Note: ABULATED TO ROOM 07 WITH A LIMP. STATES SHE STEPPED IN A HOLE WITH HER LEFT FOOT CAUSING SEVERE PAIN. Nursing Sepsis Screen: No Definite Risk Source: patient Exam Limitations: no limitations History of Present Illness Date Seen by Provider: Jan 28, 2020 Time Seen by Provider: 10:57 Initial Comments Stepped in a hole about 1 hour ago now has ankle pain. History of several ankle injuries he reports. Onset: just prior to arrival Severity: moderate Pain/Injury Location: left ankle Method of Injury: fell Modifying Factors: Worse With Movement Allergies and Home Medications Allergies Coded Allergies: No Known Drug Allergies (Verified , 08/20/08) Home Medications Ibuprofen 600 Mg Tablet, 600 MG PO Q6HR PRN for CRAMPS Prescribed by: ESTHER JOSEPH on 05/30/19 0904 Vit No.78/Iron/FA 1 Each Tablet, 1 EACH PO DAILY, (Reported) Patient Home Medication List Home Medication List Reviewed: Yes Review of Systems Constitutional: see HPI EENTM: see HPI Respiratory: no symptoms reported Cardiovascular: no symptoms reported Genitourinary: no symptoms reported Musculoskeletal: see HPI Skin: no symptoms reported Psychiatric/Neurological: No Symptoms Reported Past Ldxinyp-Gxruce-Ongmwh Hx Patient Social History Type Used: Cigarettes Former Smoker, Quit: Sep 27, 2019 2nd Hand Smoke Exposure: No Recent Foreign Travel: No Contact w/Someone Who Travel: No Recent Infectious Disease Expo: No Recent Hopitalizations: Yes Immunizations Up To Date Tetanus Booster (TDap): Less than 5yrs PED Vaccines UTD: Yes Date of Influenza Vaccine: Dec 27, 2018 Seasonal Allergies Seasonal Allergies: Yes (spring) Past Medical History Surgeries: Yes Respiratory: No Currently Using CPAP: No Currently Using BIPAP: No Cardiac: No Neurological: Yes Reproductive Disorders: No Sexually Transmitted Disease: No HIV/AIDS: No Genitourinary: No Gastrointestinal: No Musculoskeletal: No Endocrine: No HEENT: No Cancer: No Psychosocial: No Integumentary: No Blood Disorders: No Adverse Reaction/Blood Tranf: No Family Medical History Patient reports no known family medical history. No Pertinent Family Hx Physical Exam Vital Signs Vital Signs - First Documented 01/28/20 10:05 Temp 37.0 Pulse 96 Resp 16 B/P (MAP) 130/100 (110) Pulse Ox 98 O2 Delivery Room Air Capillary Refill : Less Than 3 Seconds Height, Weight, BMI Height: 5'7" Weight: 135lbs. oz. 61.266440rk; 22.00 BMI Method:Stated General Appearance: WD/WN, no apparent distress Neck: non-tender, full range of motion Respiratory: no respiratory distress, no accessory muscle use Hips: bilateral hip non-tender, bilateral hip normal inspection, bilateral hip normal range of motion Legs: bilateral leg non-tender, bilateral leg normal inspection, bilateral leg normal range of motion Knees: bilateral knee non-tender, bilateral knee normal inspection, bilateral knee normal range of motion Ankles: left ankle pain, left ankle soft tissue tenderness, left ankle other (No swelling) Feet: bilateral foot non-tender, bilateral foot normal inspection, bilateral foot normal range of motion Neurologic/Psychiatric: alert, normal mood/affect, oriented x 3 Skin: normal color, warm/dry Progress/Results/Core Measures Results/Orders Vital Signs/I&O 01/28/20 10:05 Temp 37.0 Pulse 96 Resp 16 B/P (MAP) 130/100 (110) Pulse Ox 98 O2 Delivery Room Air Blood Pressure Mean: 110 Departure Impression Primary Impression: Left ankle sprain Qualified Codes: S93.402A - Sprain of unspecified ligament of left ankle, initial encounter Disposition: HOME, SELF-CARE Condition: Stable Departure-Patient Inst. Decision time for Depature: 11:03 Referrals: JELANI YANES MD (PCP/Family) Primary Care Physician Patient Instructions: Ankle Sprain Add. Discharge Instructions: 1.Elevate foot as much as possible. Use crutches. When you are able to bear weight without significant pain then you can stop using the crutches. Wear the ankle brace for the next 5 days. If he has persistent pain at the first of next week then you need to follow-up with your primary care provider to discuss whether or not MRI of the ankle is warranted. All discharge instructions reviewed with patient and/or family. Voiced understanding. TODD GORDON APRN Jan 28, 2020 10:57
[2020-01-28 11:09] VITALS: BP 130/100
== END 2020-01-28 11:07 | disposition home or self-care (01) ==
LOC: EDUNIT# 10:00 → ER 10:01
DX: S93.402A Sprain of unspecified ligament of left ankle, initial encounter (principal); Z87.891 Personal history of nicotine dependence; W17.2XXA Fall into hole, initial encounter
CPT/HCPCS: 73610; 73630; L4350

== ENCOUNTER → 2020-02-10 | Outpatient (CLI) | payer BC ==
--- NOTE | 2020-02-11 12:15 | Diagnostic Imaging Report ---
PROCEDURE: US PELVIC (NON OB). TECHNIQUE: Multiple real-time grayscale images were obtained over the pelvis in various projections transabdominally. INDICATION: Vaginal bleeding . FINDINGS: The endometrium is 9 mm in thickness. It appears homogenous and shows no abnormal color Doppler blood flow. There are no findings to suggest vascularized or nonvascularized retained products. Incidental cervical nabothian cyst of less than 1 cm is noted. The adnexa appear normal. There are physiologic ovarian follicles with no torsion or free fluid. IMPRESSION: No findings of retained products or other abnormalities. Dictated by: Dictated on workstation # [id number]
== END ==
LOC: RAD 10:44
PROVIDERS: ATTEND Obstetrics & Gynecology
DX: N93.9 Abnormal uterine and vaginal bleeding, unspecified (principal)
CPT/HCPCS: 76856

== ENCOUNTER → 2020-02-17 | Outpatient (CLI) | payer BC ==
--- NOTE | 2020-02-17 10:23 | Diagnostic Imaging Report ---
PROCEDURE: MR imaging left lower extremity without contrast. TECHNIQUE: Multiplanar, multisequence noncontrast enhanced MR imaging of the left lower extremity was accomplished. INDICATION: Left ankle pain, recent rolling injury. COMPARISON: Radiographs from 01/28/2020. FINDINGS: There is mild bone marrow edema at the medial talar head and neck. No fracture is seen. There is a small ossific fragment at the tip of the lateral malleolus which appears to be from a remote trauma. No joint effusion is seen. The syndesmotic ligaments appear intact. The anterior talofibular and the calcaneofibular ligaments are mildly irregular which may be from remote trauma; however, no acute tear is seen. The posterior talofibular ligament is intact. The deep fibers of the deltoid ligament appear intact. There does appear to be some irregularity and suspected tearing at the medial plantar aspect of the spring ligament (image 9 series 5). The plantar fascia is intact. The sinus tarsi demonstrates normal fatty signal. The Achilles tendon is intact. The peroneal tendons are intact. The flexor tendons are intact. The extensor tendons are intact. Soft tissues about the ankle and hindfoot demonstrate no acute abnormality. No fluid collections or masses are seen. No focal atrophy or edema is seen. IMPRESSION: 1. Bone marrow edema at the medial talar head and neck may be due to contusion. No fracture is seen. 2. Suspected partial tear of the spring ligament. Dictated by: Dictated on workstation # [id number]
== END ==
LOC: RAD 08:30
PROVIDERS: ATTEND Family Medicine
DX: S93.409A Sprain of unspecified ligament of unspecified ankle, initial encounter (principal); X58.XXXA Exposure to other specified factors, initial encounter

== ENCOUNTER 2022-01-25 09:59 | Emergency (ER) | payer BC ==
[~2022-01-25] VITALS: Ht 177 cm; Wt 57.0 kg
[2022-01-25 10:51] LABS: BILIRUBIN,URINE NEGATIVE (NEGATIVE); CLARITY,URINE CLEAR; COLOR,URINE YELLOW; GLUCOSE, URINE (UA) NEGATIVE (NEGATIVE); KETONES,URINE NEGATIVE (NEGATIVE); LEUKOCYTE ESTERASE ,URINE NEGATIVE (NEGATIVE); NITRITE,URINE NEGATIVE (NEGATIVE); PH,URINE 5.5 (5-9); PROTEIN,URINE NEGATIVE (NEGATIVE)
[2022-01-25 11:00] LABS: BACTERIA,URINE NEGATIVE /HPF; RBC,URINE RARE /HPF; SQUAMOUS EPITHELIAL CELL,UR 0-2 /HPF
[2022-01-25 11:45] LABS: BASOPHILS # (AUTO) 0.1 10^3/uL (0.0-0.1); BASOPHILS % (AUTO) 1 % (0-10); EOSINOPHILS # (AUTO) 0.5 10^3/uL (0.0-0.3); EOSINOPHILS % (AUTO) 6 % (0-10); HEMATOCRIT 43 % (35-52); HEMOGLOBIN 14.6 g/dL (11.5-16.0); LYMPHOCYTES # (AUTO) 1.7 10^3/uL (1.0-4.0); LYMPHOCYTES % (AUTO) 22 % (12-44); MEAN CORPUSCULAR HEMOGLOBIN 30 pg (25-34); MEAN CORPUSCULAR HGB CONC 34 g/dL (32-36); MEAN CORPUSCULAR VOLUME 90 fL (80-99); MEAN PLATELET VOLUME 12.7 fL (9.0-12.2); MONOCYTES # (AUTO) 0.9 10^3/uL (0.0-1.0); MONOCYTES % (AUTO) 11 % (0-12); NEUTROPHILS # (AUTO) 4.8 10^3/uL (1.8-7.8); NEUTROPHILS % (AUTO) 60 % (42-75); PLATELET COUNT 179 10^3/uL (130-400); WHITE BLOOD COUNT 7.9 10^3/uL (4.3-11.0)
[2022-01-25 11:50] LABS: ALBUMIN 4.5 GM/DL (3.2-4.5); POTASSIUM 4.2 MMOL/L (3.6-5.0)
[2022-01-25 11:51] LABS: CALCIUM 9.4 MG/DL (8.5-10.1)
[2022-01-25 11:53] LABS: TOTAL PROTEIN 7.2 GM/DL (6.4-8.2)
[2022-01-25 11:54] LABS: BILIRUBIN,TOTAL 0.8 MG/DL (0.1-1.0)
[2022-01-25 11:56] LABS: CREATININE SERUM 0.91 MG/DL (0.60-1.30)
[2022-01-25] MEDS ORDERED: ANTACID SUSP 30 ML UDC (MYLANTA) PO ONE (12:30)
[2022-01-25] MEDS ORDERED: LIDOCAINE 2% VISCOUS 15 ML UDC PO ONE (12:30)
[2022-01-25] MEDS ORDERED: ONDANSETRON 4 MG/2 ML (SDV) Z0FRAN IVP ONE (12:30)
--- NOTE | 2022-01-25 13:07 | Diagnostic Imaging Report ---
CLINICAL INDICATION: Patient right upper quadrant pain. Patient periumbilical pain. EXAM: Right upper quadrant ultrasound. COMPARISON: CT scan of abdomen and pelvis with contrast dated 08/15/2019. FINDINGS: There is diffuse hypoechogenicity seen involving the pancreas, pancreas otherwise has normal configuration. The liver has normal echogenicity and echotexture. Liver skin surface is unremarkable. There is no liver mass seen. The main portal vein demonstrates normal hepatopetal flow. There is no intrahepatic and extra hepatic ductal dilation. Common bile duct measures 4 mm. Gallbladder is mildly fluid distended. There are no stones or sludge. There is no pericholecystic fluid and no gallbladder wall thickening. There is no sonographic Mcneil sign. The abdominal aorta and IVC are unremarkable. There are multiple echogenic areas involving the left kidney. These may represent nonobstructive stones. There is no hydronephrosis. The right kidney measures 10.3 cm in craniocaudal dimension. There is no abdominal ascites. IMPRESSION: 1: There is diffuse hypo-echogenicity involving the pancreas. It is possible that this may be normal appearance for patient, but pancreatitis should be excluded. Serology tests is suggested to better evaluate. 2: There are multiple hyperechoic areas involving the right kidney which may represent nonobstructive stones. Otherwise, right kidney is unremarkable. 3: Otherwise unremarkable right upper quadrant ultrasound. Dictated by: Dictated on workstation # [id number]
[2022-01-25] MEDS ORDERED: HOLD METFORMIN - RECEIVED CONTRAST 20 ML VIAL IV SCH (13:45)
[2022-01-25] MEDS ORDERED: NS 100 ML (IVPB) BAG IV ONE (13:45)
[2022-01-25] MEDS ORDERED: IOHEXOL 350 MG/ML 100 ML (OMNIPAQUE 350) VIAL IV ONE (13:45)
--- NOTE | 2022-01-25 14:14 | Diagnostic Imaging Report ---
INDICATION: Abdominal pain. TECHNIQUE: Multiple contiguous axial images were obtained through the abdomen and pelvis after administration of intravenous contrast. Auto Exposure Controls were utilized during the CT exam to meet ALARA standards for radiation dose reduction. All CT scans use one or more of the following dose optimizing techniques: Automated exposure control, MA and/or KvP adjustment based on patient size and exam type or iterative reconstruction. Comparison made to previous study of 07/31/2019. FINDINGS: The visualized portions of the lung bases are clear. There were no pleural fluid collections. There is no free intraperitoneal air. The liver shows no focal abnormality. Gallbladder appeared normal. Spleen, adrenals, and pancreas appear unremarkable. Kidneys bilaterally appear unremarkable. There is no retroperitoneal mass or adenopathy. There is no ascites or abnormal fluid collection. Visualized bowel loops show no sign of obstruction. There appears to be a collapsed cyst in the left adnexal region measuring about 2 cm. There is a trace of free fluid in the cul-de-sac, which may be physiologic. IMPRESSION: No sign of bowel obstruction. There is a collapsed cyst in the left adnexal region measuring 2 cm, with a trace of free fluid in the cul-de-sac. There is no solid mass in the abdomen or pelvis. Dictated by: Dictated on workstation # [id number]
--- NOTE | 2022-01-25 14:50 | ED Abdominal Pain ---
General Chief Complaint: Abdominal/GI Problems Stated Complaint: ABD PAIN Nursing Triage Note: PT CO OF ABD PAIN IN UMBILICUS FOR A WEEK RATES PAIN 5/10 DULL. DENIES N/V/D AT THIS X Source of Information: Patient Exam Limitations: No Limitations History of Present Illness Date Seen by Provider: Jan 25, 2022 Time Seen by Provider: 10:21 Allergies and Home Medications Allergies Coded Allergies: No Known Drug Allergies (Verified , 08/20/08) Patient Home Medication List Ibuprofen (Ibu) 600 Mg Tablet, 600 MG PO Q6HR PRN for CRAMPS Prescribed by: ESTHER JOSEPH on 05/30/19 0904 Vit No.78/Iron/FA (Prenatabs FA Tablet) 1 Each Tablet, 1 EACH PO DAILY, (Reported) Entered as Reported by: BERHANE CARTER on 04/11/19 1229 Past Uhreilp-Qqyqcd-Dltnbb Hx Patient Social History Tobacco Use?: Yes Tobacco type used: Cigarettes Substance use?: No Alcohol Use?: No Pt feels they are or have been: No Immunizations Up To Date Tetanus Booster (TDap): Less than 5yrs PED Vaccines UTD: Yes First/Initial COVID19 Vaccinat: 2020 Second COVID19 Vaccination Philipp: 2020 COVID19 Vaccine Tipple Boss: MODERNA Seasonal Allergies Seasonal Allergies: Yes (spring) Past Medical History Surgeries: Yes Respiratory: No Currently Using CPAP: No Currently Using BIPAP: No Cardiac: No Neurological: Yes Last Menstrual Period: Jan 01, 2022 Reproductive Disorders: No Sexually Transmitted Disease: No HIV/AIDS: No Genitourinary: No Gastrointestinal: No Musculoskeletal: No Endocrine: No HEENT: No Cancer: No Psychosocial: No Integumentary: No Blood Disorders: No Adverse Reaction/Blood Tranf: No Family Medical History Patient reports no known family medical history. No Pertinent Family Hx Physical Exam Vital Signs Vital Signs - First Documented 01/25/22 10:15 Temp 36.9 Pulse 83 Resp 18 B/P (MAP) 120/97 (105) Pulse Ox 98 O2 Delivery Room Air Capillary Refill : Less Than 3 Seconds Height/Weight/BMI Height: 5'7" Weight: 135lbs. oz. 61.453034qt; 18.00 BMI Method:Stated Progress/Results/Core Measures Results/Orders Lab Results Laboratory Tests Test 01/25/22 10:20 01/25/22 10:45 Range/Units White Blood Count 7.9 4.3-11.0 10^3/uL Red Blood Count 4.81 3.80-5.11 10^6/uL Hemoglobin 14.6 11.5-16.0 g/dL Hematocrit 43 35-52 % Mean Corpuscular Volume 90 80-99 fL Mean Corpuscular Hemoglobin 30 25-34 pg Mean Corpuscular Hemoglobin Concent 34 32-36 g/dL Red Cell Distribution Width 12.9 10.0-14.5 % Platelet Count 179 130-400 10^3/uL Mean Platelet Volume 12.7 H 9.0-12.2 fL Immature Granulocyte % (Auto) 0 % Neutrophils (%) (Auto) 60 42-75 % Lymphocytes (%) (Auto) 22 12-44 % Monocytes (%) (Auto) 11 0-12 % Eosinophils (%) (Auto) 6 0-10 % Basophils (%) (Auto) 1 0-10 % Neutrophils # (Auto) 4.8 1.8-7.8 10^3/uL Lymphocytes # (Auto) 1.7 1.0-4.0 10^3/uL Monocytes # (Auto) 0.9 0.0-1.0 10^3/uL Eosinophils # (Auto) 0.5 H 0.0-0.3 10^3/uL Basophils # (Auto) 0.1 0.0-0.1 10^3/uL Immature Granulocyte # (Auto) 0.0 0.0-0.1 10^3/uL Sodium Level 137 135-145 MMOL/L Potassium Level 4.2 3.6-5.0 MMOL/L Chloride Level 106 98-107 MMOL/L Carbon Dioxide Level 22 21-32 MMOL/L Anion Gap 9 5-14 MMOL/L Blood Urea Nitrogen 9 7-18 MG/DL Creatinine 0.91 0.60-1.30 MG/DL Estimat Glomerular Filtration Rate 84 BUN/Creatinine Ratio 10 Glucose Level 96 70-105 MG/DL Calcium Level 9.4 8.5-10.1 MG/DL Corrected Calcium 9.0 8.5-10.1 MG/DL Total Bilirubin 0.8 0.1-1.0 MG/DL Aspartate Amino Transf (AST/SGOT) 13 5-34 U/L Alanine Aminotransferase (ALT/SGPT) 14 0-55 U/L Alkaline Phosphatase 56 40-136 U/L C-Reactive Protein High Sensitivity 0.06 0.00-0.50 MG/DL Total Protein 7.2 6.4-8.2 GM/DL Albumin 4.5 3.2-4.5 GM/DL Lipase 21 8-78 U/L Serum Test, Qualitative NEGATIVE NEGATIVE Urine Color YELLOW Urine Clarity CLEAR Urine pH 5.5 5-9 Urine Specific Hulen 1.025 H 1.016-1.022 Urine Protein NEGATIVE NEGATIVE Urine Glucose (UA) NEGATIVE NEGATIVE Urine Ketones NEGATIVE NEGATIVE Urine Nitrite NEGATIVE NEGATIVE Urine Bilirubin NEGATIVE NEGATIVE Urine Urobilinogen 0.2 < = 1.0 MG/DL Urine Leukocyte Esterase NEGATIVE NEGATIVE Urine RBC (Auto) NEGATIVE NEGATIVE Urine RBC RARE /HPF Urine WBC NONE /HPF Urine Squamous Epithelial Cells 0-2 /HPF Urine Crystals NONE /LPF Urine Bacteria NEGATIVE /HPF Urine Casts NONE /LPF Urine Mucus NEGATIVE /LPF Urine Culture Indicated NO My Orders Orders - CUAUHTEMOC HERNANDEZ MD Ua Culture If Indicated (01/25/22 10:21) Cbc With Automated Diff (01/25/22 11:36) Comprehensive Metabolic Panel (01/25/22 11:36) Hs C Reactive Protein (01/25/22 11:36) Hcg,Qualitative Serum (01/25/22 11:36) Lipase (01/25/22 11:36) Ed Iv/Invasive Line Start (01/25/22 11:36) Us Gallbladder 54585 (01/25/22 11:36) Ondansetron Injection (Zofran Injectio (01/25/22 12:30) Lidocaine 2% Viscous 15 Ml (Xylocaine Vi (01/25/22 12:30) Antacid Suspension (Mylanta Suspension (01/25/22 12:30) Ct Abdomen/Pelvis W (01/25/22 13:37) Iohexol Injection (Omnipaque 350 Mg/Ml 1 (01/25/22 13:45) Received Contrast (Hold Metformin- Contr (01/25/22 13:45) Ns (Ivpb) (Sodium Chloride 0.9% Ivpb Bag (01/25/22 13:45) Medications Given in ED Current Medications Medications Dose Ordered Sig/Tae Route Start Time Stop Time Status Last Admin Dose Admin Al Hydrox/Mg Hydrox/Simethicone 30 ml ONCE ONCE PO 01/25/22 12:30 01/25/22 12:31 DC 01/25/22 12:39 30 ML Iohexol 100 ml ONCE ONCE IV 01/25/22 13:45 01/25/22 13:46 DC 01/25/22 13:54 62 ML Lidocaine HCl 15 ml ONCE ONCE PO 01/25/22 12:30 01/25/22 12:31 DC 01/25/22 12:39 15 ML Ondansetron HCl 4 mg ONCE ONCE IVP 01/25/22 12:30 01/25/22 12:31 DC 01/25/22 12:39 4 MG Sodium Chloride 100 ml ONCE ONCE IV 01/25/22 13:45 01/25/22 13:46 DC 01/25/22 13:54 80 ML Vital Signs/I&O 01/25/22 10:15 Temp 36.9 Pulse 83 Resp 18 B/P (MAP) 120/97 (105) Pulse Ox 98 O2 Delivery Room Air Blood Pressure Mean: 105 Departure Impression Primary Impression: Right upper quadrant pain Disposition: 01 HOME, SELF-CARE Condition: Stable Departure-Patient Inst. Decision time for Depature: 14:57 Referrals: NAHOMI NIELSON BRETT D DO GAULT, HOLLY R MD (PCP/Family) Primary Care Physician Patient Instructions: Abdominal Pain, Adult ED Add. Discharge Instructions: The exact cause of your abdominal pain is uncertain at this time. Possible causes could be gallbladder dysfunction, duodenitis, gastritis, bowel irritation, etc. Follow-up with your primary care provider as scheduled and seek referral to a surgeon for endoscopy, possible hepatobiliary scan, and further evaluation. Your insurance may allow you to schedule a consultation with a surgeon directly. You should call your insurance to check your policy. In the meantime, increase famotidine to 20 mg twice daily. Add omeprazole 20 mg daily. Avoid the following: Eating large meals, eating close to bedtime, caffeine, carbonation, citrus fruits and juices, tomato products, chocolate, mints, alcohol, tobacco, NSAID medications such as ibuprofen or naproxen, spicy foods, fatty/greasy foods, oils, or anything else you know irritates your stomach. You may take Tylenol (acetaminophen) up to 1000 mg every 6 hours as needed for pain. Return to the emergency room if you have worsening symptoms despite following these instructions or if you develop additional symptoms such as vomiting, bloody stools, fever, etc. An H. pylori test was ordered on your blood from the ER. This is a send out test and will take several days to return. Please review results with your doctor in follow-up. All discharge instructions reviewed with patient and/or family. Voiced understanding. Copy Copies To 1: AZRA CLARKE DO; JELANI YANES MD Copies To 2: JELANI YANES MD, JOSHUA T MD Jan 25, 2022 14:50
[2022-01-25 15:08] VITALS: BP 116/70
== END 2022-01-25 15:08 | disposition home or self-care (01) ==
LOC: EDUNIT# 09:59 → ER 10:01
DX: R10.11 Right upper quadrant pain (principal); F17.210 Nicotine dependence, cigarettes, uncomplicated; Z32.02 Encounter for pregnancy test, result negative
CPT/HCPCS: 36415; 74177; 76705; 80053; 81000; 83690; 84703; 85025; 86141; 86677

== ENCOUNTER 2022-02-16 05:37 | Outpatient (CLI) | payer BC ==
[~2022-02-16] VITALS: Ht 177.8 cm; Wt 68.2 kg
[2022-02-16] MEDS ORDERED: FAMO40TA72 PO (11:02)
[2022-02-16] MEDS ORDERED: OMEP10SU2 PO (11:02)
== END 2022-02-16 11:08 | disposition home or self-care (01) ==
LOC: PREOP 05:37
PROVIDERS: ATTEND Surgery
DX: Z01.818 Encounter for other preprocedural examination (principal)

== ENCOUNTER → 2022-02-17 | Outpatient (CLI) | payer BC ==
[~2022-02-17] MED LIST changes: +FAMO40TA72 PO; +OMEP10SU2 PO
--- NOTE | 2022-02-17 14:29 | Diagnostic Imaging Report ---
INDICATION: Epigastric pain. COMPARISON: CT abdomen and pelvis of 01/25/2022. TECHNIQUE: Anterior scintigraphic imaging of the abdomen was performed after the intravenous administration of 5.37 mCi Tc-99m Choletec. FINDINGS: The upper abdomen was imaged for 60 minutes with the gamma camera. There is prompt homogeneous uptake of radiopharmaceutical by the liver. There is activity in the common duct and gallbladder by 15 minutes. Patient was given oral Ensure. The patient immediately experienced nausea and vomiting. Therefore, gallbladder ejection fraction could not be adequately assessed. IMPRESSION: 1. The cystic duct is patent, and therefore there are no features of acute cholecystitis. 2. Patient became nauseated and vomited during the examination after administration of the oral Ensure. Therefore, gallbladder ejection fraction could not be adequately assessed. Dictated by: Dictated on workstation # [id number]
== END ==
LOC: CARD 09:32
PROVIDERS: ATTEND Family Medicine
DX: R10.13 Epigastric pain (principal)
CPT/HCPCS: 78227; A9537

== ENCOUNTER 2022-02-21 08:26 | Day surgery (SDC) | payer BC ==
[~2022-02-21] VITALS: Ht 178 cm; Wt 68.2 kg
[2022-02-21] MEDS ORDERED: LACTATED RINGERS 1,000 ML IV STA (08:41)
[2022-02-21 08:45] VITALS: BP 108/84
[2022-02-21] MEDS ORDERED: HURRICAINE EXT TUBE (BENZOCAINE) XX PRN (08:45)
--- NOTE | 2022-02-21 09:33 | Progress Note-Pre Operative ---
Pre-Operative Progress Note Date of Available H&P: Feb 15, 2022 Date H&P Reviewed: Feb 21, 2022 Time H&P Reviewed: 09:30 History & Physical: H&P Reviewed, Patient Examed, No changes noted Pre-Operative Diagnosis: NAHOMI HANDY DO Feb 21, 2022 09:33
[2022-02-21] MEDS ORDERED: ONDANSETRON 4 MG/2 ML (SDV) Z0FRAN IV ONE (09:45)
[2022-02-21] MEDS ORDERED: PROPOFOL INJECTION 50 ML IV ONE (11:22)
[2022-02-21] MEDS ORDERED: MIDAZOLAM 2 MG/2 ML (VERSED) VIAL ONE (11:22)
[2022-02-21 11:40] VITALS: BP 107/60
--- NOTE | 2022-02-21 11:42 | Progress Note-Post Operative ---
Post-Operative Progess Note Surgeon (s)/Sort Operations Supervisor (s) Surgeon NAHOMI NIELSON DO Sort Operations Supervisor: none Pre-Operative Diagnosis GERD Post-Operative Diagnosis Gastritis Esophagitis Procedure & Operative Findings Date of Procedure 02/21/22 Procedure Performed/Findings EGD with bx PROCEDURE NOTE: After informed consent was obtained, the patient was brought to the endoscopy suite, placed in bed in left lateral decubitus position. She was administered IV sedation by the PROPERTY MANAGEMENT INTERN who then monitored vitals the entire time, heart rate, blood pressure and pulse ox and the scope was inserted down the mouth through the esophagus into the stomach. On the way down, noted some mild esophagitis, took a picture, pushed into the stomach, pushed past the antrum into the duodenum. Duodenum looked good and even saw the ampulla of Vater. Pulled back, noted some sequelae of bleeding, took a picture and did a biopsy of the antrum. Then retroflexed the scope, did not see a hiatal hernia; but possibly it was loose almost a very early sliding hiatal hernia. The cardia in this area also looked a little inflamed and did a biopsy of it. Took a picture of this and then pulled the scope into the GE junction and did a biopsy of the GE junction. Pushed the scope back into the stomach, suctioned all the air out of the stomach. At this point pulled the scope up the esophagus and out of the mouth. The patient tolerated the procedure, and she recovered in endoscopy suite. Anesthesia Type IV sedation by PROPERTY MANAGEMENT INTERN Estimated Blood Loss Estimated blood loss (mL): scant Specimens/Packing Specimens Removed antral bx Cardia bx GE jxn bx NAHOMI NIELSON DO Feb 21, 2022 11:42
--- NOTE | 2022-02-21 11:43 | Endoscopy Discharge Instruct ---
Endo Procedure/Findings Findings 1.: Gastritis 2.: Other Findings (esophagitis) Discharge Instructions - Activity: You might feel a little sleepy until tomorrow. This is due to the medicine you received to relax you. Until tomorrow, you should: NOT drive a car, operate machinery or power tools. NOT drink any alcoholic beverages. NOT make any important decisions or sign importortant papers. Do not return to work until tomorrow, unless otherwise instructed. Resume previous activities tomorrow. Diet: Start by taking liquids. If you tolerate liquids, advance to solid food. 1.: EGD in 3 years Notify Physician - If you experience excessive bleeding, unusual abdominal pain, fever, or chest pain, contact your doctor immediately. NAHOMI NIELSON DO Feb 21, 2022 11:43
[2022-02-21 11:45] VITALS: BP 116/75
[2022-02-21 11:50] VITALS: BP 105/70
--- NOTE | 2022-02-21 11:50 | Anesthesia-General Post-Op ---
MAC Patient Condition Mental Status/LOC: Same as Preop Cardiovascular: Satisfactory Nausea/Vomiting: Absent Respiratory: Satisfactory Pain: Controlled Complications: Absent Post Op Complications Complications None Follow Up Care/Instructions Patient Instructions None needed. Anesthesiology Discharge Order Discharge Order Patient is doing well, no complaints, stable vital signs, no apparent adverse anesthesia problems. No complications reported per nursing. DAVID AVILES CRNA Feb 21, 2022 11:50
[2022-02-21 12:22] VITALS: BP 105/70
[2022-02-24] MEDS ORDERED: ACHD5005 PO (10:50)
== END 2022-02-21 13:08 | disposition home or self-care (01) ==
LOC: ENDO 08:26
PROVIDERS: ATTEND Surgery
DX: K29.70 Gastritis, unspecified, without bleeding (principal); K21.00 Gastro-esophageal reflux disease with esophagitis, without bleeding; F17.210 Nicotine dependence, cigarettes, uncomplicated
CPT/HCPCS: 84703; 88305

== ENCOUNTER 2022-02-22 05:37 | Outpatient (CLI) | payer BC ==
[~2022-02-22] VITALS: Ht 177.8 cm; Wt 68.2 kg
[2022-02-24] MEDS ORDERED: ACHD5005 PO (10:50)
== END 2022-02-22 08:22 | disposition home or self-care (01) ==
LOC: PREOP 05:37
PROVIDERS: ATTEND Surgery
DX: Z01.818 Encounter for other preprocedural examination (principal)

== ENCOUNTER 2022-02-24 08:17 | Day surgery (SDC) | payer BC ==
[2022-02-24] VITALS (12 sets, daily range): BP systolic 105–139; BP diastolic 60–90
[~2022-02-24] VITALS: Ht 178 cm; Wt 68.2 kg
[2022-02-24] MEDS ORDERED: MIDAZOLAM 2 MG/2 ML (VERSED) VIAL ONE (08:19)
[2022-02-24] MEDS ORDERED: fentaNYL INJ 100 MCG/2 ML AMP ONE ×2 (08:19→11:09)
[2022-02-24] MEDS ORDERED: BUP/EPI 0.25% 1:200,000 (MARCAINE) 30 ML VIAL ONE (08:23)
[2022-02-24] MEDS ORDERED: SCOPOLAMINE 1.5 MG (TRANSDERM-SCOP) PATCH TD ONE (08:30)
[2022-02-24] MEDS ORDERED: ONDANSETRON 4 MG/2 ML (SDV) Z0FRAN IVP ONE ×2 (08:30→13:00)
[2022-02-24] MEDS ORDERED: ceFAZolin INJECTION 2,000 MG in NS (IVPB) 50 ML IV ONE (08:30)
[2022-02-24] MEDS ORDERED: FAMOTIDINE 20MG/2ML IV (PEPCID) IVP ONE (08:30)
[2022-02-24] MEDS: LACTATED RINGERS 1,000 ML IV PRN ×2 (08:43→10:25)
[2022-02-24] MEDS ORDERED: ONDANSETRON 4 MG/2 ML (SDV) Z0FRAN ONE ×2 (08:48→10:02)
[2022-02-24] MEDS ORDERED: ceFAZolin INJECTION 2,000 MG ONE (08:48)
[2022-02-24] MEDS ORDERED: SCOPOLAMINE 1.5 MG (TRANSDERM-SCOP) PATCH ONE (08:48)
[2022-02-24] MEDS ORDERED: FAMOTIDINE 20MG/2ML IV (PEPCID) ONE (08:48)
[2022-02-24] MEDS ORDERED: NS (IVPB) 50 ML ONE (08:49)
[2022-02-24] MEDS ORDERED: LIDOCAINE PF 2% 5 ML (XYLOCAINE) VIAL ONE (10:02)
[2022-02-24] MEDS ORDERED: ROCURONIUM 10 MG/ML 5 ML SYRINGE IV ONE (10:02)
[2022-02-24] MEDS ORDERED: proPOfol 200 MG/20 ML (DIPRIVAN) VIAL IV ONE (10:02)
[2022-02-24] MEDS ORDERED: IOPAMIDOL 61% 30 ML (ISOVUE 300) VIAL DUCT ONE (10:15)
[2022-02-24] MEDS ORDERED: BUP/EPI 0.25% 1:200,000 (MARCAINE) 30 ML VIAL INJ ONE (10:18)
[2022-02-24] MEDS ORDERED: SEVOFLURANE (ULTANE) 15 ML INHAL SOLN ONE (10:46)
--- NOTE | 2022-02-24 10:49 | Progress Note-Post Operative ---
Post-Operative Progess Note Surgeon (s)/[employer] (s) Surgeon NAHOMI NIELSON DO [employer]: Mary Pre-Operative Diagnosis BILIARY DYSKINESIA Post-Operative Diagnosis same plus bilateral indirect inguinal hernia Procedure & Operative Findings Date of Procedure 02/24/22 Procedure Performed/Findings PROCEDURE: Laparoscopic cholecystectomy with intraoperative cholangiogram. COMPLICATIONS: None. PROCEDURE: The patient was taken to the operating suite and was prepped and draped in a sterile fashion. A surgical pause was performed. Just superior to the umbilicus, a 12 mm incision was made. Dissection was taken down to the fascia, which was then scored and grasped with a Alvina and the abdomen was then entered. A 0 Vicryl suture was placed in a [id number] fashion and a Dickinson trocar was placed and secured. Pneumoperitoneum was achieved. A 5mm trochar place in the subxyphoid and 2 in the right upper quadrant. The gallbladder was then grasped and taken in the superior direction. A second grasper was used to grab Robles's pouch and pull in the infero-lateral direction. The cystic duct was very long and thin; which may be the contributing factor to her having biliary dyskinesia. Also when I looked down in the pelvis could see bilateral indirect inguinal hernias; picture taken. The cystic duct and cystic artery were then dissected out. Clip was placed on the distal portion of the cystic duct which was then partially transected. An arrow catheter was inserted into the duct. The cholangiogram was then performed. No filling defects and contrast made its way into the duodenum. Catheter r emoved. Clips were placed on proximal portion of the cystic duct and then the duct was then transected. Clips were placed along the proximal and distal portion of the cystic artery which was then transected. Hook cautery was used to dissect the gallbladd er from the gallbladder fossa achieving hemostasis. The gallbladder was placed in an Endobag and removed through the 12 mm trocar site. The abdomen was then reinspected. Copious amounts of irrigation were used to irrigate the abdomen and there were no signs of active bleeding. Hemostasis had been achieved. The 12 mm fascial defect was then closed with 0 Vicryl suture that had been placed in a [id number] fashion. The abdomen was then desufflated, the trocars were removed. The abdomen was then washed and dried. The skin was then closed using 4-0 Monocryl in a subcuticular fashion. The abdomen was washed and dried and Skin Affix was place over incisions. Patient tolerated the procedure well without any complications and was taken to the recovery room in stable condition. Dr. Hernandez assisted on this case helping to make incisions, close incisions, identify anatomy and hold anatomy out of the way. Anesthesia Type GET Estimated Blood Loss Estimated blood loss (mL): scant Specimens/Packing Specimens Removed GB and contents NAHOMI NIELSON DO Feb 24, 2022 10:49
[2022-02-24] MEDS ORDERED: ACHD5005 PO (10:50)
--- NOTE | 2022-02-24 10:51 | Discharge Inst-Surgical ---
Discharge Inst-Surgical Depart Medication/Instructions New, Converted or Re-Newed RX: Transmitted to Pharmacy Patient Instructions Follow up Appt: Make appointment for 1 week. [phone] Instructions: No lifting greater than 20 pounds. No strenuous activity. May shower in 24 hours, no tub bath or soaking. Use incentive spirometer at home as directed. No Smoking Skin/Wound Care: May remove bandages in am. You need to leave the Dermabond on incision it will fall off on it's own. Symptoms to Report: Appetite Changes, Extremity Discoloration, Numbness/Tingling, Swelling Increased, Bleeding Excessive, Eyesight Changes, Pain Increased, Urine Color Change, Constipation(Persistent), Fever over 101 degree F, Pain/Pressure in chest, Urinating Difficulty, Cough Up/Vomit Blood, Heart Beat Irreg/Pounding, Pain/Pressure in jaw, Cramps in feet or legs, Lightheadedness, Pain/Pressure in shoulder, Diarrhea(Persistent), Memory Changes Suddenly, Questions/Concerns, Weight gain consecutive days, Dizziness/Fainting, Nausea/Vomiting, Shortness of Breath, Weight gain over 2 pounds If questions or concerns contact your physician Or seek help at emergency department. Activity Activity as Tolerated: Yes Activity Instructions: Avoid Stress to Incision Driving Instructions: No Driving/Refer to Diet Discharge Diet: Avoid Fatty Foods, Low Fat/Low Cholesterol Diet After 24 Hours: Clear Liquid if Nauseous If Any Problems/Questions/Issu: Contact Your Physician, Go to Emergency Room Skin/Wound Care Infection Signs and Symptoms: Increased Redness, Foul Odor of Wound, Increased Drainage, Skin Itchy or Has a Rash, Increased Swelling, Temperature Above 101 F Wound Care Comment: Heating pad to shoulder or neck tonight for pain Bathing Instructions: Shower Stitches/Fallentimber/Dermabond Dis: Dermabond Ice Pack: Ice On and Off Site NAHOMI NIELSON DO Feb 24, 2022 10:51
--- NOTE | 2022-02-24 11:08 | Anesthesia-General Post-Op ---
General Patient Condition Mental Status/LOC: Same as Preop Cardiovascular: Satisfactory Nausea/Vomiting: Absent Respiratory: Satisfactory Pain: Controlled Complications: Absent Post Op Complications Complications None Follow Up Care/Instructions Patient Instructions None needed. Anesthesia/Patient Condition Patient Condition Patient is doing well, no complaints, stable vital signs, no apparent adverse anesthesia problems. No complications reported per nursing. KERLINE MORGAN CRNA Feb 24, 2022 11:08
[2022-02-24] MEDS ORDERED: HYDROmorphone 2 MG/ML VIAL (DILAUDID) IV ONE (11:15)
[2022-02-24] MEDS ORDERED: fentaNYL INJ 100 MCG/2 ML AMP IVP ONE (11:15)
[2022-02-24] MEDS ORDERED: ONDANSETRON 4 MG/2 ML (SDV) Z0FRAN IVP PRN (11:15)
[2022-02-24] MEDS ORDERED: HYDROcodone/APAP 5 MG/325 MG (LORTAB) TAB PO ONE (12:00)
[2022-02-24] MEDS ORDERED: HYDROcodone/APAP 5 MG/325 MG (LORTAB) TAB ONE (12:03)
--- NOTE | 2022-02-24 16:36 | Diagnostic Imaging Report ---
INDICATION: Cholecystectomy Operative cholangiogram performed in the routine fashion with injection via the cystic duct stump in surgery. 25.0 seconds of fluoroscopy time was used. 38 images are obtained. The biliary tree is nondilated. There are no filling defects in the biliary tree. Contrast passes to the duodenum without obstruction. IMPRESSION: Unremarkable operative cholangiogram. Dictated by: Dictated on workstation # [id number]
== END 2022-02-24 14:35 | disposition home or self-care (01) ==
LOC: SDC 08:17
PROVIDERS: ATTEND Surgery
DX: K82.8 Other specified diseases of gallbladder (principal); K81.1 Chronic cholecystitis; K40.20 Bilateral inguinal hernia, without obstruction or gangrene, not specified as recurrent; K21.9 Gastro-esophageal reflux disease without esophagitis; Z87.891 Personal history of nicotine dependence; Z79.899 Other long term (current) drug therapy
CPT/HCPCS: 76000; 84703; 87081

== ENCOUNTER 2022-03-09 09:12 | Emergency (ER) | payer BC ==
[~2022-03-09] VITALS: Ht 177 cm; Wt 63.0 kg
[~2022-03-09 09:12] MED LIST changes: +ACHD5005 PO
--- NOTE | 2022-03-09 09:57 | ED Abdominal Pain ---
General Chief Complaint: Abdominal/GI Problems Stated Complaint: ABD PAIN Nursing Triage Note: PT AMB TO RM 8 PT CO OF ABD PAIN IN EPIGASTRIC AREA, RATES 8/10. PT STATES HAD GALL BLADDER OUT 02/24/22 AND HAS NO PAIN UNTIL THIS AM. DENIES N/V/D OR FEVERS History of Present Illness Date Seen by Provider: Mar 09, 2022 Time Seen by Provider: 09:52 Initial Comments 36-year-old female with PMH of recent cholecystectomy/GERD, is here with complaints of sudden onset of acute epigastric abdominal pain which is 8/10 intensity, and which began about 1 hour prior to coming to the ER. Patient had a gallbladder removed on 02/24 which was uncomplicated. Denies diarrhea, fever, nausea and vomiting, chest pain, shortness of breath, urinary symptoms. Patient also recently had an EGD done approximately a week ago which was normal Allergies and Home Medications Allergies Coded Allergies: medroxyprogesterone (Verified Allergy, Mild, RASH/ITCHING, 02/22/22) Patient Home Medication List Home Medication List Reviewed: Yes Famotidine (Pepcid) Unknown Strength Tablet, Unknown Dose PO, (Reported) Entered as Reported by: ALESHIA GONGORA on 02/16/22 1102 Hydrocodone Bit/Acetaminophen (HYDROcodone/APAP 5 MG/325 MG TAB) 1 Tab Tab, 1 TAB PO Q8H PRN for PAIN-MODERATE (5-7) Prescribed by: NAHOMI NIELSON on 02/24/22 1050 Omeprazole Magnesium (Prilosec) 10 Mg Suspdr.pkt, 10 MG PO, (Reported) Entered as Reported by: ALESHIA GONGORA on 02/16/22 1102 Review of Systems Review of Systems Constitutional: no symptoms reported EENTM: No Symptoms Reported Respiratory: No Symptoms Reported Cardiovascular: No Symptoms Reported Gastrointestinal: Abdominal Pain Genitourinary: No Symptoms Reported Musculoskeletal: no symptoms reported Skin: no symptoms reported Psychiatric/Neurological: No Symptoms Reported Endocrine: No Symptoms Reported Hematologic/Lymphatic: No Symptoms Reported Past Foifvpp-Quouzp-Jkyvrp Hx Patient Social History Tobacco Use?: No Substance use?: No Alcohol Use?: No Pt feels they are or have been: No Immunizations Up To Date Tetanus Booster (TDap): Less than 5yrs PED Vaccines UTD: Yes First/Initial COVID19 Vaccinat: 03/2020 Second COVID19 Vaccination Philipp: 03/2020 Third COVID19 Vaccination Date: 03/2020 Seasonal Allergies Seasonal Allergies: Yes (spring) Past Medical History Surgery/Hospitalization HX: GB Surgeries: Yes (Cleft lip and palate repair, EGD) Tubal Ligation Respiratory: No Currently Using CPAP: No Currently Using BIPAP: No Cardiac: No Neurological: Yes Last Menstrual Period: Feb 26, 2022 Reproductive Disorders: No 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 No Pertinent Family Hx Physical Exam Vital Signs Vital Signs - First Documented 03/09/22 09:20 Temp 36.6 Pulse 78 Resp 16 B/P (MAP) 128/88 (101) Pulse Ox 98 Capillary Refill : Less Than 3 Seconds Height/Weight/BMI Height: 5'7" Weight: 135lbs. oz. [id number]; 20.00 BMI Method:Stated General Appearance: WD/WN, mild distress HEENT: normal ENT inspection Neck: full range of motion Respiratory: lungs clear Cardiovascular: regular rate, rhythm Gastrointestinal: normal bowel sounds, soft, tenderness (In the epigastric region) Extremities: normal range of motion Back: normal inspection, no CVA tenderness Neurologic/Psychiatric: alert, normal mood/affect, oriented x 3 Skin: normal color Focused Exam Lactate Level 03/09/22 10:13: Lactic Acid Level 1.00 Lactic Acid Level Laboratory Tests Test 03/09/22 10:13 Lactic Acid Level 1.00 MMOL/L (0.50-2.00) Progress/Results/Core Measures Results/Orders Lab Results Laboratory Tests Test 03/09/22 10:01 03/09/22 10:13 03/09/22 10:16 Range/Units White Blood Count 9.0 4.3-11.0 10^3/uL Red Blood Count 4.62 3.80-5.11 10^6/uL Hemoglobin 14.3 11.5-16.0 g/dL Hematocrit 42 35-52 % Mean Corpuscular Volume 90 80-99 fL Mean Corpuscular Hemoglobin 31 25-34 pg Mean Corpuscular Hemoglobin Concent 34 32-36 g/dL Red Cell Distribution Width 12.4 10.0-14.5 % Platelet Count 254 130-400 10^3/uL Mean Platelet Volume 12.3 H 9.0-12.2 fL Immature Granulocyte % (Auto) 0 % Neutrophils (%) (Auto) 61 42-75 % Lymphocytes (%) (Auto) 23 12-44 % Monocytes (%) (Auto) 8 0-12 % Eosinophils (%) (Auto) 7 0-10 % Basophils (%) (Auto) 1 0-10 % Neutrophils # (Auto) 5.5 1.8-7.8 10^3/uL Lymphocytes # (Auto) 2.1 1.0-4.0 10^3/uL Monocytes # (Auto) 0.7 0.0-1.0 10^3/uL Eosinophils # (Auto) 0.6 H 0.0-0.3 10^3/uL Basophils # (Auto) 0.1 0.0-0.1 10^3/uL Immature Granulocyte # (Auto) 0.0 0.0-0.1 10^3/uL Sodium Level 137 135-145 MMOL/L Potassium Level 4.0 3.6-5.0 MMOL/L Chloride Level 106 98-107 MMOL/L Carbon Dioxide Level 22 21-32 MMOL/L Anion Gap 9 5-14 MMOL/L Blood Urea Nitrogen 10 7-18 MG/DL Creatinine 0.78 0.60-1.30 MG/DL Estimat Glomerular Filtration Rate 101 BUN/Creatinine Ratio 13 Glucose Level 97 70-105 MG/DL Calcium Level 9.1 8.5-10.1 MG/DL Corrected Calcium 8.7 8.5-10.1 MG/DL Magnesium Level 1.9 1.6-2.4 MG/DL Total Bilirubin 0.7 0.1-1.0 MG/DL Aspartate Amino Transf (AST/SGOT) 14 5-34 U/L Alanine Aminotransferase (ALT/SGPT) 34 0-55 U/L Alkaline Phosphatase 78 40-136 U/L Troponin I < 0.028 <0.028 NG/ML Total Protein 7.2 6.4-8.2 GM/DL Albumin 4.5 3.2-4.5 GM/DL Lipase 22 8-78 U/L Lactic Acid Level 1.00 0.50-2.00 MMOL/L Urine Color YELLOW Urine Clarity CLEAR Urine pH 5.0 5-9 Urine Specific [place] >=1.030 1.016-1.022 Urine Protein NEGATIVE NEGATIVE Urine Glucose (UA) NEGATIVE NEGATIVE Urine Ketones NEGATIVE NEGATIVE Urine Nitrite NEGATIVE NEGATIVE Urine Bilirubin NEGATIVE NEGATIVE Urine Urobilinogen 0.2 < = 1.0 MG/DL Urine Leukocyte Esterase NEGATIVE NEGATIVE Urine RBC (Auto) NEGATIVE NEGATIVE Urine RBC NONE /HPF Urine WBC RARE /HPF Urine Squamous Epithelial Cells 2-5 /HPF Urine Crystals NONE /LPF Urine Bacteria TRACE /HPF Urine Casts NONE /LPF Urine Mucus NEGATIVE /LPF Urine Culture Indicated NO Urine Test NEGATIVE NEGATIVE Urine Opiates Screen NEGATIVE NEGATIVE Urine Oxycodone Screen NEGATIVE NEGATIVE Urine Methadone Screen NEGATIVE NEGATIVE Urine Propoxyphene Screen NEGATIVE NEGATIVE Urine Barbiturates Screen NEGATIVE NEGATIVE Ur Tricyclic Antidepressants Screen NEGATIVE NEGATIVE Urine Phencyclidine Screen NEGATIVE NEGATIVE Urine Amphetamines Screen NEGATIVE NEGATIVE Urine Methamphetamines Screen NEGATIVE NEGATIVE Urine Benzodiazepines Screen NEGATIVE NEGATIVE Urine Cocaine Screen NEGATIVE NEGATIVE Urine Cannabinoids Screen NEGATIVE NEGATIVE My Orders Orders - TEA SMITH MD Cbc With Automated Diff (03/09/22 09:58) Comprehensive Metabolic Panel (03/09/22 09:58) Drug Screen Stat (Urine) (03/09/22 09:58) Hcg,Qualitative Urine (03/09/22 09:58) Lactic Acid Analyzer (03/09/22 09:58) Lipase (03/09/22 09:58) Magnesium (03/09/22 09:58) Ua Culture If Indicated (03/09/22 09:58) Troponin I Venkat (03/09/22 09:58) Ct Abdomen/Pelvis W (03/09/22 09:59) Ed Iv/Invasive Line Start (03/09/22 09:59) Pantoprazole Injection (Protonix Injecti (03/09/22 10:00) Iohexol Injection (Omnipaque 350 Mg/Ml 1 (03/09/22 10:15) Di Iv Start (Assessment) .IV start (03/09/22 10:04) Received Contrast (Hold Metformin- Contr (03/09/22 10:15) Ns (Ivpb) (Sodium Chloride 0.9% Ivpb Bag (03/09/22 10:15) Famotidine Injection (Pepcid Injection) (03/09/22 10:45) Antacid Suspension (Mylanta Suspension (03/09/22 11:45) Medications Given in ED Current Medications Medications Dose Ordered Sig/Tae Route Start Time Stop Time Status Last Admin Dose Admin Iohexol 100 ml ONCE ONCE IV 03/09/22 10:15 03/09/22 10:16 DC 03/09/22 11:06 74 ML Pantoprazole 40 mg ONCE ONCE IV 03/09/22 10:00 03/09/22 10:01 DC 03/09/22 10:09 40 MG Sodium Chloride 100 ml ONCE ONCE IV 03/09/22 10:15 03/09/22 10:16 DC 03/09/22 11:06 80 ML Vital Signs/I&O 03/09/22 09:20 Temp 36.6 Pulse 78 Resp 16 B/P (MAP) 128/88 (101) Pulse Ox 98 Blood Pressure Mean: 101 Progress Progress Note : Progress Note ABDOMINAL PAIN: ACUTE GASTRITIS: - CT ABD: no acute findings - Labs unremarkable with normal lipase. -Protonix IV/Pepcid IV/Maalox given in ER. Patient's symptoms improved with treatment -Advised patient to continue omeprazole and Pepcid. Advised to take Maalox as needed for severe pain in between doses of her usual medications. -Follow-up with PCP within the next 3 to 7 days for a full gastritis work-up -The patient was seen in the ED, and treated appropriately to presentation at a specific point in time. Patient is informed that there is a possibility that disease and illness can evolve and change in acuity rapidly or slowly after patient is discharged from the ER. Precautionary advice given to the patient for immediate return to ER if symptoms worsen or do not resolve, and to seek emergency care sooner rather than later. Pt also advised on the importance of PCP follow up and compliance with management and follow up plan with PCP and/or specialist, as this is part of the management plan. Pt verbally expressed understanding. Diagnostic Imaging Diagonstic Imaging: CT Plain Films/CT/US/NM/MRI: abdomen Comments [facility]. [place], [place] NAME: ARLEN BASHIR [facility] REC#: [id number] PT STATUS: REG ER : 1985 PHYSICIAN: TEA SMITH MD ADMIT DATE: 03/09/22/ER Draft Date of Exam:03/09/22 CT ABDOMEN/PELVIS W PROCEDURE: CT abdomen and pelvis with contrast. TECHNIQUE: Multiple contiguous axial images were obtained through the abdomen and pelvis after administration of intravenous contrast. Auto Exposure Controls were utilized during the CT exam to meet ALARA standards for radiation dose reduction. All CT scans use one or more of the following dose optimizing techniques: automated exposure control, MA and/or KvP adjustment based on patient size and exam type or iterative reconstruction. INDICATION: Abdominal pain in epigastric region. Patient is status post cholecystectomy on 02/24/2022. COMPARISON: Comparison is made with prior CT from 01/25/2022. FINDINGS: The lung bases are clear apart from a small subpleural nodule in the left lower lobe, stable. No infiltrates are seen. The liver is unremarkable. Gallbladder is surgically absent. No biliary ductal dilatation is seen. Pancreas and spleen are unremarkable. No adrenal mass is detected. Kidneys are unremarkable. There is no hydronephrosis. Aorta is nonaneurysmal. Bowel loops appear to be nonobstructed. No free fluid or fluid collection is seen. The uterus and ovaries as well as the bladder are unremarkable. No definite inflammatory changes are seen. IMPRESSION: Status post cholecystectomy. No acute feature in the abdomen or pelvis is identified. Dictated on workstation # [id number] Dict: 03/09/22 1109 Trans: 03/09/22 1117 [id number] Interpreted by: RAFAEL SUAREZ MD Electronically signed by: Departure Impression Primary Impression: Acute gastritis Qualified Codes: K29.00 - Acute gastritis without bleeding Disposition: HOME, SELF-CARE Condition: Improved Departure-Patient Inst. Referrals: JELANI YANES MD (PCP/Family) Primary Care Physician Patient Instructions: Gastritis (DC), Gastritis Add. Discharge Instructions: -Advised patient to continue omeprazole and Pepcid. Advised to take Maalox as needed for severe pain in between doses of her usual medications. -Follow-up with PCP within the next 3 to 7 days for a full gastritis work-up All discharge instructions reviewed with patient and/or family. Voiced understanding. TEA SMITH MD Mar 09, 2022 09:57
[2022-03-09] MEDS ORDERED: PANTOPRAZOLE 40 MG (PROTONIX) VIAL IV ONE (10:00)
[2022-03-09 10:05] LABS: BASOPHILS # (AUTO) 0.1 10^3/uL (0.0-0.1); BASOPHILS % (AUTO) 1 % (0-10); EOSINOPHILS # (AUTO) 0.6 10^3/uL (0.0-0.3); EOSINOPHILS % (AUTO) 7 % (0-10); HEMATOCRIT 42 % (35-52); HEMOGLOBIN 14.3 g/dL (11.5-16.0); LYMPHOCYTES # (AUTO) 2.1 10^3/uL (1.0-4.0); LYMPHOCYTES % (AUTO) 23 % (12-44); MEAN CORPUSCULAR HEMOGLOBIN 31 pg (25-34); MEAN CORPUSCULAR HGB CONC 34 g/dL (32-36); MEAN CORPUSCULAR VOLUME 90 fL (80-99); MEAN PLATELET VOLUME 12.3 fL (9.0-12.2); MONOCYTES # (AUTO) 0.7 10^3/uL (0.0-1.0); MONOCYTES % (AUTO) 8 % (0-12); NEUTROPHILS # (AUTO) 5.5 10^3/uL (1.8-7.8); NEUTROPHILS % (AUTO) 61 % (42-75); PLATELET COUNT 254 10^3/uL (130-400)
[2022-03-09 10:07] LABS: ALBUMIN 4.5 GM/DL (3.2-4.5)
[2022-03-09 10:08] LABS: CHLORIDE 106 MMOL/L (98-107); SODIUM 137 MMOL/L (135-145)
[2022-03-09 10:09] LABS: CALCIUM 9.1 MG/DL (8.5-10.1)
[2022-03-09 10:10] LABS: GLUCOSE 97 MG/DL (70-105); TOTAL PROTEIN 7.2 GM/DL (6.4-8.2)
[2022-03-09 10:11] LABS: CARBON DIOXIDE 22 MMOL/L (21-32)
[2022-03-09 10:12] LABS: BILIRUBIN,TOTAL 0.7 MG/DL (0.1-1.0)
[2022-03-09 10:13] LABS: ALKALINE PHOSPHATASE 78 U/L (40-136)
[2022-03-09 10:14] LABS: CREATININE SERUM 0.78 MG/DL (0.60-1.30); GFR ESTIMATED 101
[2022-03-09 10:15] LABS: BUN/CREATININE RATIO 13
[2022-03-09] MEDS ORDERED: IOHEXOL 350 MG/ML 100 ML (OMNIPAQUE 350) VIAL IV ONE (10:15)
[2022-03-09] MEDS ORDERED: NS 100 ML (IVPB) BAG IV ONE (10:15)
[2022-03-09] MEDS ORDERED: HOLD METFORMIN - RECEIVED CONTRAST 20 ML VIAL IV SCH (10:15)
[2022-03-09 10:17] LABS: ALANINE AMINOTRANSFERASE 34 U/L (0-55); MAGNESIUM 1.9 MG/DL (1.6-2.4)
[2022-03-09 10:18] LABS: LIPASE 22 U/L (8-78)
[2022-03-09 10:24] LABS: BILIRUBIN,URINE NEGATIVE (NEGATIVE); CLARITY,URINE CLEAR; COLOR,URINE YELLOW; GLUCOSE, URINE (UA) NEGATIVE (NEGATIVE); KETONES,URINE NEGATIVE (NEGATIVE); LEUKOCYTE ESTERASE ,URINE NEGATIVE (NEGATIVE); NITRITE,URINE NEGATIVE (NEGATIVE); PROTEIN,URINE NEGATIVE (NEGATIVE)
[2022-03-09 10:30] LABS: HCG,QUALITATIVE URINE NEGATIVE (NEGATIVE)
[2022-03-09 10:38] LABS: BACTERIA,URINE TRACE /HPF; WBC,URINE RARE /HPF
[2022-03-09 10:39] LABS: AMPHETAMINE SCREEN, URINE NEGATIVE (NEGATIVE); BARBITURATE SCREEN URINE NEGATIVE (NEGATIVE); BENZODIAZEPINES SCREEN URINE NEGATIVE (NEGATIVE); CANNABINOID SCREEN, URINE NEGATIVE (NEGATIVE); COCAINE SCREEN URINE NEGATIVE (NEGATIVE); METHADONE STAT NEGATIVE (NEGATIVE); OPIATE SCREEN URINE NEGATIVE (NEGATIVE); OXYCODONE STAT NEGATIVE (NEGATIVE); PROPOXYPHENE STAT NEGATIVE (NEGATIVE); TRICYCLIC ANTIDEPRESSANTS SCRE NEGATIVE (NEGATIVE)
[2022-03-09] MEDS ORDERED: FAMOTIDINE 20MG/2ML IV (PEPCID) IV STA (10:45)
--- NOTE | 2022-03-09 11:17 | Diagnostic Imaging Report ---
PROCEDURE: CT abdomen and pelvis with contrast. TECHNIQUE: Multiple contiguous axial images were obtained through the abdomen and pelvis after administration of intravenous contrast. Auto Exposure Controls were utilized during the CT exam to meet ALARA standards for radiation dose reduction. All CT scans use one or more of the following dose optimizing techniques: automated exposure control, MA and/or KvP adjustment based on patient size and exam type or iterative reconstruction. INDICATION: Abdominal pain in epigastric region. Patient is status post cholecystectomy on 02/24/2022. COMPARISON: Comparison is made with prior CT from 01/25/2022. FINDINGS: The lung bases are clear apart from a small subpleural nodule in the left lower lobe, stable. No infiltrates are seen. The liver is unremarkable. Gallbladder is surgically absent. No biliary ductal dilatation is seen. Pancreas and spleen are unremarkable. No adrenal mass is detected. Kidneys are unremarkable. There is no hydronephrosis. Aorta is nonaneurysmal. Bowel loops appear to be nonobstructed. No free fluid or fluid collection is seen. The uterus and ovaries as well as the bladder are unremarkable. No definite inflammatory changes are seen. IMPRESSION: Status post cholecystectomy. No acute feature in the abdomen or pelvis is identified. Dictated by: Dictated on workstation # [id number]
[2022-03-09] MEDS ORDERED: ANTACID SUSP 30 ML UDC (MYLANTA) PO ONE (11:45)
[2022-03-09 13:02] VITALS: BP 106/74
== END 2022-03-09 13:01 | disposition home or self-care (01) ==
LOC: EDUNIT# 09:12 → ER 09:13
DX: K29.00 Acute gastritis without bleeding (principal); Z32.02 Encounter for pregnancy test, result negative; Z90.49 Acquired absence of other specified parts of digestive tract
CPT/HCPCS: 36415; 74177; 80053; 80306; 81000; 83605; 83690; 83735; 84484; 84703; 85025